=== PATIENT | female | born 1970 | race Caucasian/White ===

== ENCOUNTER 2016-10-26 14:10 | Inpatient (IN) | payer OTHER ==
[2016-10-25 15:19] VITALS: Ht 162.6 cm; Wt 110.0 kg
[2016-10-26] VITALS (25 sets, daily range): BP systolic 111–165; BP diastolic 51–92; PULSE 73–110; RESP 13–41
[~2016-10-26] VITALS: Ht 162.6 cm; Wt 110.0 kg
[~2016-10-26 14:10] MED LIST: ALBU18HF INHALATION; AMLO5TAB4 PO; CEFAZOLIN 1 GM INJ ONE; IBUP-1542 PO; OMEP40CA6 PO; OXYC-281 PO; PROPOFOL 200 MG INJ ONE; TRAM50TA2 PO
[2016-10-26] MEDS ORDERED: CEFAZOLIN 2 GM/50 ML (PMX) 50 ML IVPB ONE (15:00)
--- NOTE | 2016-10-26 16:09 | HPN ---
Date/Time of Note Date/Time of Note DATE: 10/26/16 TIME: 16:08 Interval H&P Admission Note Pt. seen H&P reviewed: No system changes ASHELY MORALEZ DPM Oct 26, 2016 16:09
[2016-10-26] MEDS ORDERED: LANS30CA PO (16:13)
[2016-10-26] MEDS ORDERED: CARV6.2579 PO (16:13)
[2016-10-26] MEDS ORDERED: MOME13HF2 INHALATION (16:13)
[2016-10-26] MEDS ORDERED: PREG50CA PO (16:13)
[2016-10-26] MEDS ORDERED: IBUP800T25 PO (16:13)
[2016-10-26] MEDS ORDERED: PROPOFOL 20 ML ONE (16:17)
[2016-10-26] MEDS ORDERED: LIDOCAINE 2% (SDV) 5 ML INJ ONE (16:17)
[2016-10-26] MEDS ORDERED: PROVENTIL HFA 6.7GM INHALER ONE (16:17)
[2016-10-26] MEDS ORDERED: MIDAZOLAM 1 MG/ML 2 ML INJ ONE ×2 (16:18→16:36)
[2016-10-26] MEDS ORDERED: HYDROmorphONE 2 MG/ML SYG ONE (16:32)
[2016-10-26] MEDS ORDERED: METOCLOPRAMIDE 10 MG INJ ONE (16:42)
[2016-10-26] MEDS ORDERED: ONDANSETRON 4 MG INJ ONE (16:42)
[2016-10-26] MEDS ORDERED: FAMOTIDINE 20 MG INJ ONE (16:42)
[2016-10-26] MEDS ORDERED: DIPHENHYDRAMINE 50 MG INJ IV PRN ×3 (17:00→23:00)
[2016-10-26] MEDS ORDERED: FENTAnyl 50 MCG/ML VIAL IV PRN (17:00)
[2016-10-26] MEDS ORDERED: HYDROmorphONE (0.2 MG/ML) 10ML SYG IV PRN ×3 (17:00)
[2016-10-26] MEDS ORDERED: ONDANSETRON 4 MG INJ IV PRN ×2 (17:00→18:00)
[2016-10-26] MEDS ORDERED: MEPERIDINE 25 MG INJ IV PRN (17:00)
[2016-10-26] MEDS ORDERED: KETOROLAC 30 MG INJ ONE (17:35)
[2016-10-26] MEDS ORDERED: DIPHENHYDRAMINE 50 MG INJ ONE (17:36)
[2016-10-26] MEDS ORDERED: BUPIVACAINE 0.5% (SDV) 30 ML INJ ONE (17:41)
[2016-10-26] MEDS ORDERED: LIDOCAINE 2% (MDV) 20 ML INJ ONE (17:42)
[2016-10-26] MEDS ORDERED: ALBUTEROL 0.083% (NEB) 2.5 MG/3 ML AMP ONE (17:44)
[2016-10-26] MEDS ORDERED: morphine 10 MG INJ ONE (17:56)
[2016-10-26] MEDS ORDERED: morphine (1 MG/ML) 10ML SYRINGE IV ONE (17:57)
[2016-10-26] MEDS ORDERED: hydrALAzine 20 MG INJ IV PRN (18:00)
[2016-10-26] MEDS ORDERED: morphine (1 MG/ML) 10ML SYRINGE IV PRN ×3 (18:00)
[2016-10-26] MEDS ORDERED: LABETALOL HCL 20MG INJ IV PRN (18:00)
[2016-10-26] MEDS ORDERED: ALBUTEROL 0.083% (NEB) 2.5 MG/3 ML AMP HHN ONE (18:00)
[2016-10-26] MEDS ORDERED: IPRATROPIUM (NEB) 0.5 MG/2.5 ML AMP HHN ONE (18:00)
[2016-10-26] MEDS ORDERED: NITROGLYCERIN (SL) 0.4 MG TAB ONE (18:07)
[2016-10-26] MEDS ORDERED: ALBUTEROL HFA 8 GM INHALER INH PRN (18:30)
[2016-10-26] MEDS ORDERED: KETOROLAC 30 MG INJ IV PRN (19:00)
[2016-10-26] MEDS ORDERED: POTASSIUM CHLORIDE 20 MEQ in LACTATED RINGER'S 1,000 ML IV SCH (19:00)
[2016-10-26] MEDS ORDERED: NITROGLYCERIN 2% 1 GM OINT PKT ONE (19:06)
[2016-10-26] MEDS: NITROGLYCERIN 2% 1 GM OINT PKT TD SCH (19:12)
[2016-10-26] MEDS: NITROGLYCERIN (SL) 0.4 MG TAB SL PRN (19:17)
[2016-10-26] MEDS: ASPIRIN (EC) 325 MG TAB PO SCH (19:31)
--- NOTE | 2016-10-26 20:06 | CONS ---
DATE OF ADMISSION: 10/26/2016 DATE OF CONSULTATION: 10/26/2016 REASON FOR CONSULTATION: Chest pain, assess for acute coronary syndrome. REQUESTING PHYSICIAN: Marcello Rowe MD HISTORY OF PRESENT ILLNESS: Ms. Jimenes is a 46-year-old female with a history of asthma, hyperten fili, gastroesophageal reflux disease, who had a toe fracture for which she underwent open reduction /internal fixation today. Post-procedure, the patient had complaints of shortness of breath, then t he onset of a substernal chest pain, described as pressure-like symptoms radiating through her chest . The patient, given these findings, underwent a troponin analysis which was negative. The patient has not yet had an electrocardiogram, but the EKG prior to the procedure revealed normal sinus rhyt hm, with a normal axis and mild T-wave flattening. The patient, at this time, has had some improvem ent with nitrates and sublingual nitroglycerins. PAST MEDICAL HISTORY: As above in HPI. The patient reported having a 2D echo prior to surgery, whi ch was normal. MEDICATIONS CURRENTLY IN HOSPITAL 1. Lyrica. 2. Protonix 40 mg daily. 4. Nitro paste 0.5 q.8. 5. Carvedilol 6.25 mg p.o. b.i.d. 6. Advair Diskus. 7. Albuterol. 8. Aspirin 325 mg daily. 9. Morphine p.r.n. 10. Albuterol p.r.n. 11. Hydralazine p.r.n. ALLERGIES 1. ACETAMINOPHEN. 2. CODEINE. 3. HYDROCODONE. 4. LATEX. 5. TRAMADOL. SOCIAL HISTORY: No tobacco, EtOH, illicit drug use. FAMILY HISTORY: No history of sudden cardiac or early CAD. REVIEW OF SYSTEMS As above in HPI: CONSTITUTIONAL: No fevers, chills. PULMONARY: No current shortness of breath. CARDIOVASCULAR: No current chest pain. GASTROINTESTINAL: No vomiting. GENITOURINARY: No hematuria. MUSCULOSKELETAL: Degenerative joint disease. PSYCHIATRIC: No documented psych history. NEUROLOGIC: No documented history of CVA. ENDOCRINE: No history of diabetes mellitus. PHYSICAL EXAMINATION VITAL SIGNS: Temperature of 98, blood pressure most recently 136/75, pulse 92, respiratory rate 29, sating 97% on 3 L. GENERAL: The patient is alert, awake, in no acute distress. NECK: JVP of approximately 8 cm water. CHEST: Fair movement throughout with mildly decreased breath sounds at the bases bilaterally. HEART: Regular rate and rhythm. S1, S2. I/ systolic murmur, nondisplaced PMI. ABDOMEN: Positive bowel sounds, soft. EXTREMITIES: No edema. Right lower extremity covered by a cast. LABORATORIES: Troponin negative x1. IMAGING STUDIES: No current imaging studies for my review at this time. ELECTROCARDIOGRAM: As above in HPI; no further new EKGs for my review at this time. IMPRESSION 1. Chest pain, assess for acute coronary syndrome. 2. Shortness of breath, rule out acute coronary syndrome. 3. History of hypertension. 4. Status post open reduction/internal fixation of a toe fracture today. 5. History of asthma. RECOMMENDATIONS 1. At this time, would admit patient to telemetry monitoring to follow rhythm and rate control clos oleksandr. 2. Continue the patient's current carvedilol to control heart rate and blood pressure and continue the patient's nitro paste at this time with p.r.n. sublingual nitroglycerin as necessary for recurre nt episodes of chest pain. 3. Complete a rule-out for myocardial infarction to ensure that the patient's chest pain is not due to an acute coronary syndrome or acute myocardial infarction. 4. Check a repeat 2D echo to assess ejection fraction, wall motion to rule out any major valve abno rmalities, and we will also initiate patient on a low-dose beta elizabeth and follow serial EKGs. Thank you for allowing me to take part in the care of this patient. I will continue to follow along very closely with you. Further recommendations will be made as the patient progresses through her inpatient hospital clinical course. Dictated By: GEMMA CABALLERO/YULIA Conf#: [id number] DID#: [id number] CC: MARCELLO ROWE MD;*End*
[2016-10-26] MEDS ORDERED: METOPROLOL 25 MG TAB PO SCH (21:00)
[2016-10-26] MEDS ORDERED: SALMETEROL/FLUTICASONE 250/50 INHA INH SCH (21:00)
--- NOTE | 2016-10-26 23:18 | HP ---
DATE OF ADMISSION: 10/26/2016 CHIEF COMPLAINT: Chest pain and right foot pain. HISTORY OF PRESENT ILLNESS: The patient is a 46-year-old female with history of hypertension, and a sthma who sustained left metatarsal fracture a few months ago. The patient reported that she twiste d her foot. The patient was seen by Dr. Moralez as an outpatient and was brought in to hospital [facility] and underwent ____ left fifth metatarsal. Detailed operative report is currently not available. The patient has history OF ALLERGY TO CODEINE and postoperatively was given IV Dilaudid. The patien t, in the recovery room, developed chest pressure. The patient was given nitroglycerin. The patien t reported resolution of her symptoms. The patient also appeared anxious. The patient was given br eathing treatment also due to history of asthma. The patient also received IV morphine postoperativ oleksandr; however, subsequently both Dilaudid and morphine have been discontinued due to HISTORY OF ALLER GY TO CODEINE AND HYDROCODONE. The patient did not have any skin rash. The patient does not appear to be short of breath, remains awake, alert. No reported diaphoresis. The patient did not complai n of any radiation of pain or tightness in the left upper extremity or angle of jaw. The patient re ported no prior history of known coronary artery disease. The patient in fact was seen by Dr. Teresa santos from cardiac standpoint preoperatively and had unremarkable echocardiogram with preserved LV func tion. The patient was cleared for surgery. REVIEW OF SYSTEMS: The patient denies any recent history of abdominal pain. No history of fever or chills. No history of nausea, vomiting, diarrhea. Rest of the review of systems unremarkable. PAST MEDICAL HISTORY: As stated above. ALLERGIES: TYLENOL WITH CODEINE, HYDROCODONE, LATEX, TRAMADOL. THE PATIENT WAS NOT SURE WHETHER HE R ALLERGIES WERE DUE TO TYLENOL ALONE, TYLENOL WITH CODEINE, OR HYDROCODONE ALONE, OR HYDROCODONE WI TH TYLENOL. SOCIAL HISTORY: No smoking, no alcohol. FAMILY HISTORY: The patient's mother had bypass surgery and one other sister probably has a pacemak er. Details are not available. PHYSICAL EXAMINATION: GENERAL: The patient is conscious, awake, alert. VITAL SIGNS: Temperature 98, pulse 74, respirations 20, blood pressure 137/58, O2 saturation 92% to 94% on 3 liters nasal cannula. HEENT: Atraumatic, normocephalic. Conjunctivae and lids normal. Oropharynx clear. NECK: Supple. No mass or thyromegaly. CHEST: Fairly clear. No use of accessory muscles. CARDIOVASCULAR: No murmur, gallop, or rub. ABDOMEN: Soft, nondistended, nontender. Bowel sounds present. EXTREMITIES: No leg edema. NEUROLOGIC: The patient is awake, alert, fairly oriented with no gross focal deficit, although exam was limited due to recent surgery. LABORATORY DATA: First troponin negative. EKG: Preop EKG was unremarkable. Echo unremarkable. IMPRESSION: 1. Atypical chest pain, rule out myocardial infarction. 2. Hypertension. 3. Asthma. 4. Left fifth metatarsal fracture, status post surgery. PLAN: The patient admitted on surgical floor. The patient will be given aspirin, nitrate, and Core g. We will hold off on Lovenox due to recent surgery. Will obtain serial cardiac enzymes and will obtain EKG also. Will obtain lipid panel. Cardiac consult from Dr. Oconnell has been requested. Fu rther recommendations depending on hospital course. Dictated By: MARCELLO ALMAGUER/NTS Conf#: [id number] DID#: [id number] CC: ASHELY MORALEZ DPM;*End*
[2016-10-27] VITALS (13 sets, daily range): BP systolic 108–151; BP diastolic 55–79; PULSE 65–104; RESP 16–20
[2016-10-27] MEDS ORDERED: PREGABALIN 25 MG CAP PO SCH
[2016-10-27] MEDS ORDERED: PREGABALIN 50 MG CAP PO ONE (00:30)
[2016-10-27] MEDS: morphine 2 MG INJ IV PRN ×6 (00:36→22:29)
[2016-10-27] MEDS: PREGABALIN 25 MG CAP PO SCH ×3 (00:37→20:25)
[2016-10-27] MEDS: LACTATED RINGER'S 1,000 ML IV SCH ×4 (00:41→20:37)
[2016-10-27] MEDS ORDERED: PANTOPRAZOLE (EC) 40 MG TAB PO SCH (06:00)
[2016-10-27] MEDS: PANTOPRAZOLE (EC) 40 MG TAB PO SCH (06:31)
[2016-10-27] MEDS: NITROGLYCERIN 2% 1 GM OINT PKT TD SCH (06:32)
[2016-10-27] MEDS: SALMETEROL/FLUTICASONE 250/50 INHA INH SCH (08:03)
[2016-10-27] MEDS: ASPIRIN (EC) 325 MG TAB PO SCH (08:04)
[2016-10-27] MEDS: ONDANSETRON 4 MG INJ IV PRN ×3 (08:04→22:41)
[2016-10-27 10:17] LABS: ADD SCAN DIFF NO
[2016-10-27 10:33] LABS: BASOPHIL # 0.1 10^3/ul (0.0-0.1); BASOPHILS % 0.5 % (0.0-2.0); EOSINOPHILS # 0.1 10^3/ul (0.0-0.5); EOSINOPHILS % 0.5 % (0.0-7.0); HEMATOCRIT 33.2 % (37.0-47.0); HEMOGLOBIN 10.8 g/dl (12.0-16.0); LYMPHOCYTES # 1.8 10^3/ul (0.8-2.9); MEAN CORPUSCULAR HEMOGLOBIN 28.7 pg (29.0-33.0); MEAN CORPUSCULAR HGB CONC 32.5 g/dl (32.0-37.0); MEAN CORPUSCULAR VOLUME 88.3 fl (82.0-101.0); MEAN PLATELET VOLUME 9.6 fl (7.4-10.4); MONOCYTE # 0.6 10^3/ul (0.3-0.9); MONOCYTES % 5.9 % (0.0-11.0); NEUTROPHIL # 7.6 10^3/ul (1.6-7.5); NEUTROPHILS % 74.9 % (39.0-77.0); PLATELET COUNT 318 10^3/UL (140-415); RED BLOOD COUNT 3.76 10^6/ul (4.20-5.40); RED CELL DISTRIBUTION WIDTH 14.6 % (11.5-14.5); WHITE BLOOD COUNT 10.1 10^3/ul (4.8-10.8)
[2016-10-27 10:37] LABS: ALBUMIN 3.1 g/dl (3.3-4.9)
[2016-10-27 10:38] LABS: POTASSIUM 3.7 mmol/L (3.5-5.1)
[2016-10-27 10:40] LABS: ALBUMIN/GLOBULIN RATIO 1.1; BILIRUBIN,INDIRECT 0.4 mg/dl (0-1.1); BILIRUBIN,TOTAL 0.4 mg/dl (0.2-1.3); CREATININE 0.6 mg/dl (0.44-1.00); TOTAL PROTEIN 5.9 g/dl (6.1-8.1)
[2016-10-27 10:41] LABS: CALCIUM 8.4 mg/dl (8.4-10.2); CHOL/HDL RATIO 2.5 RATIO
--- NOTE | 2016-10-27 13:56 | CONS ---
Date/Time of Note Date/Time of Note DATE: 10/27/16 TIME: 13:51 Assessment/Plan Assessment/Plan Chief Complaint/Hosp Course IMPRESSION 1. Chest pain, assess for acute coronary syndrome.-negative troponin x 3 but ongoing chest pain 2. Shortness of breath, rule out acute coronary syndrome-improved. 3. History of hypertension. 4. Status post open reduction/internal fixation of a toe fracture today. 5. History of asthma. Recc: -Tele -continue coreg/asa -Oral nitrates low dose and follow sx -Pain control for foot -For ongoing chest pain will consider stress test in AM Problems: Consultation Date/Type/Reason Admit Date/Time Oct 26, 2016 at 18:24 Initial Consult Date 10/26/2016 Type of Consultation: Cardiology Reason for Consultation Chest pain Referring Provider: MARCELLO CARTER MD Exam/Review of Systems Vital Signs Vitals Vital Signs Date Time Temp Pulse Resp B/P Pulse Ox O2 Delivery O2 Flow Rate FiO2 10/27/16 12:39 82 10/27/16 11:26 98.2 18 120/62 99 10/27/16 08:23 Nasal Cannula 2.0 Intake and Output 10/26/16 10/26/16 10/27/16 15:00 23:00 07:00 Intake Total 120 ml 1240 ml Output Total 5 ml Balance 115 ml 1240 ml Exam Review of Systems: CONSTITUTIONAL: No fevers, chills. PULMONARY: No sob CARDIOVASCULAR: intermittent chest pain GASTROINTESTINAL: No nausea/vomiting. GENITOURINARY: No hematuria/dysuria. MUSCULOSKELETAL: Pain in foot PSYCHIATRIC: The patient denies depression. NEUROLOGIC: No weakness Constitutional: alert, oriented Psych: no complaints Head: normocephalic ENMT: mucosa pink and moist Neck: jvd (9 cm water), supple Respiratory: diminished breath sounds (at bases/B) Cardiovascular: regular rate and rhythm Gastrointestinal: non-tender, soft Musculoskeletal: muscle tone Extremities: edema (none), other (R foot covered by cast/dressing) Neurological: other (No focal deficits) Results Result Diagram: 10/27/16 0940 10/27/16 0940 Results 24 hrs Laboratory Tests Test 10/26/16 18:35 10/27/16 00:25 10/27/16 09:40 Troponin I < 0.012 < 0.012 < 0.012 White Blood Count 10.1 Red Blood Count 3.76 L Hemoglobin 10.8 L Hematocrit 33.2 L Mean Corpuscular Volume 88.3 Mean Corpuscular Hemoglobin 28.7 L Mean Corpuscular Hemoglobin Concent 32.5 Red Cell Distribution Width 14.6 H Platelet Count 318 Mean Platelet Volume 9.6 Neutrophils % 74.9 Lymphocytes % 18.0 Monocytes % 5.9 Eosinophils % 0.5 Basophils % 0.5 Nucleated Red Blood Cells % 0.0 Neutrophils # 7.6 H Lymphocytes # 1.8 Monocytes # 0.6 Eosinophils # 0.1 Basophils # 0.1 Nucleated Red Blood Cells # 0.0 Sodium Level 138 Potassium Level 3.7 Chloride Level 103 Carbon Dioxide Level 24 Anion Gap 15 Blood Urea Nitrogen 7 Creatinine 0.60 Glucose Level 134 Calcium Level 8.4 Total Bilirubin 0.4 Direct Bilirubin 0.00 Indirect Bilirubin 0.4 Aspartate Amino Transf (AST/SGOT) 23 Alanine Aminotransferase (ALT/SGPT) 31 Alkaline Phosphatase 49 Total Protein 5.9 L Albumin 3.1 L Globulin 2.80 Albumin/Globulin Ratio 1.10 Triglycerides Level 93 Cholesterol Level 105 LDL Cholesterol, Calculated 45 HDL Cholesterol 41 Cholesterol/HDL Ratio 2.5 Medications Medications Current Medications Nitroglycerin (Nitroglycerin (Sl Tab) 0.4 Mg) 1 tab Q5M PRN SL ANGINA Last administered on 10/26/16 19:17; Admin Dose 0.4 TAB; Start 10/26/16 at 18:30 Albuterol (Ventolin Hfa) 2 puff Q4H PRN INH sob; Start 10/26/16 at 18:30 Carvedilol (Coreg) 6.25 mg BID PO Last administered on 10/27/16 08:04; Admin Dose 6.25 MG; Start 10/26/16 at 21:00 Aspirin (Ecotrin) 325 mg DAILY PO Last administered on 10/27/16 08:04; Admin Dose 325 MG; Start 10/26/16 at 18:30 Nitroglycerin (Nitroglycerin 2% Oint) 0.5 inch Q8 TD Last administered on 06:32; Admin Dose 0.5 INCH; Start 10/26/16 at 22:00 Diphenhydramine HCl (Benadryl) 25 mg Q6H PRN IV ITCHING; Start 10/26/16 at 23: 00 Ondansetron HCl 4 mg 4 mg Q6H PRN IV NAUSEA AND/OR VOMITING Last administered on 10/27/16 08:04; Admin Dose 4 MG; Start 10/26/16 at 23:30 Lactated Ringer's (Lr) 1,000 ml @ 70 mls/hr [id number] IV Last administered on 04:13; Admin Dose 70 MLS/HR; Start 10/26/16 at 23:30 Morphine Sulfate (morphine) 2 mg Q3H PRN IV PAIN LEVEL 6-10 Last administered on 10/27/16 11:35; Admin Dose 2 MG; Start 10/27/16 at 00:30 Pregabalin (Lyrica) 50 mg BID PO Last administered on 10/27/16 08:04; Admin Dose 50 MG; Start 10/27/16 at 00:30 Salmeterol Xinafoate/ Fluticasone (Advair 250/50 Diskus) 1 inh DAILY INH Last administered on 10/27/16 08:03; Admin Dose 1 INH; Start 10/27/16 at 09:00 Pantoprazole (Protonix Tab) 40 mg DAILY@06 PO Last administered on 10/27/16 06 :31; Admin Dose 40 MG; Start 10/27/16 at 06:00 GEMMA JOHNSON Oct 27, 2016 13:56
--- NOTE | 2016-10-27 13:59 | PN ---
Date/Time of Note Date/Time of Note DATE: 10/27/16 TIME: 13:57 Assessment/Plan VTE Prophylaxis VTE Prophylaxis Intervention: SCD's Lines/Catheters IV Catheter Type (from Nrsg): Peripheral IV Reason Cath still needed: urinary retention Assessment/Plan Assessment/Plan 1. Atypical chest pain, rule out myocardial infarction. - per Dr Oconnell in cardiology -Troponins negative 3. Lipid panel- WNL - aspirin, nitrate, and Coreg. 2. Hypertension.- stable 3. Asthma.- no acute issues. 4. Left fifth metatarsal fracture, status post surgery. -We will hold off on Lovenox due to recent surgery. 5. SCD for DVT prophylaxis Further recommendations based on patient's clinical course. Discussed with staff, patient Subjective 24 Hr Interval Summary Eyes: no complaints ENT: no complaints Respiratory: no complaints Cardiovascular: no complaints Genitourinary: no complaints Musculoskeletal: no complaints Skin: no complaints Exam/Review of Systems Vital Signs Vitals Vital Signs Date Time Temp Pulse Resp B/P Pulse Ox O2 Delivery O2 Flow Rate FiO2 10/27/16 12:39 82 10/27/16 11:26 98.2 18 120/62 99 10/27/16 08:23 Nasal Cannula 2.0 Intake and Output 10/26/16 10/26/16 10/27/16 15:00 23:00 07:00 Intake Total 120 ml 1240 ml Output Total 5 ml Balance 115 ml 1240 ml Exam Complain of chest pain on and off sitting in the bed denies any palpitations dizziness headache. Discussed with the staff Constitutional: alert, well developed Psych: nl mood/affect Eyes: EOMI, nl sclera ENMT: nl external ears & nose Neck: non-tender Respiratory: clear to auscultation Cardiovascular: other (Complain of chest pain off-and-on) Gastrointestinal: non-tender, soft Musculoskeletal: nl extremities to inspection Neurological: nl mental status, nl speech Lymph: nontender Results Result Diagram: 10/27/16 0940 10/27/16 0940 Results 24 hrs Laboratory Tests Test 10/26/16 18:35 10/27/16 00:25 10/27/16 09:40 Troponin I < 0.012 < 0.012 < 0.012 White Blood Count 10.1 Red Blood Count 3.76 L Hemoglobin 10.8 L Hematocrit 33.2 L Mean Corpuscular Volume 88.3 Mean Corpuscular Hemoglobin 28.7 L Mean Corpuscular Hemoglobin Concent 32.5 Red Cell Distribution Width 14.6 H Platelet Count 318 Mean Platelet Volume 9.6 Neutrophils % 74.9 Lymphocytes % 18.0 Monocytes % 5.9 Eosinophils % 0.5 Basophils % 0.5 Nucleated Red Blood Cells % 0.0 Neutrophils # 7.6 H Lymphocytes # 1.8 Monocytes # 0.6 Eosinophils # 0.1 Basophils # 0.1 Nucleated Red Blood Cells # 0.0 Sodium Level 138 Potassium Level 3.7 Chloride Level 103 Carbon Dioxide Level 24 Anion Gap 15 Blood Urea Nitrogen 7 Creatinine 0.60 Glucose Level 134 Calcium Level 8.4 Total Bilirubin 0.4 Direct Bilirubin 0.00 Indirect Bilirubin 0.4 Aspartate Amino Transf (AST/SGOT) 23 Alanine Aminotransferase (ALT/SGPT) 31 Alkaline Phosphatase 49 Total Protein 5.9 L Albumin 3.1 L Globulin 2.80 Albumin/Globulin Ratio 1.10 Triglycerides Level 93 Cholesterol Level 105 LDL Cholesterol, Calculated 45 HDL Cholesterol 41 Cholesterol/HDL Ratio 2.5 Medications Medications Current Medications Nitroglycerin (Nitroglycerin (Sl Tab) 0.4 Mg) 1 tab Q5M PRN SL ANGINA Last administered on 10/26/16 19:17; Admin Dose 0.4 TAB; Start 10/26/16 at 18:30 Albuterol (Ventolin Hfa) 2 puff Q4H PRN INH sob; Start 10/26/16 at 18:30 Carvedilol (Coreg) 6.25 mg BID PO Last administered on 10/27/16 08:04; Admin Dose 6.25 MG; Start 10/26/16 at 21:00 Aspirin (Ecotrin) 325 mg DAILY PO Last administered on 10/27/16 08:04; Admin Dose 325 MG; Start 10/26/16 at 18:30 Nitroglycerin (Nitroglycerin 2% Oint) 0.5 inch Q8 TD Last administered on 06:32; Admin Dose 0.5 INCH; Start 10/26/16 at 22:00 Diphenhydramine HCl (Benadryl) 25 mg Q6H PRN IV ITCHING; Start 10/26/16 at 23: 00 Ondansetron HCl 4 mg 4 mg Q6H PRN IV NAUSEA AND/OR VOMITING Last administered on 10/27/16 08:04; Admin Dose 4 MG; Start 10/26/16 at 23:30 Lactated Ringer's (Lr) 1,000 ml @ 70 mls/hr [id number] IV Last administered on 04:13; Admin Dose 70 MLS/HR; Start 10/26/16 at 23:30 Morphine Sulfate (morphine) 2 mg Q3H PRN IV PAIN LEVEL 6-10 Last administered on 10/27/16 11:35; Admin Dose 2 MG; Start 10/27/16 at 00:30 Pregabalin (Lyrica) 50 mg BID PO Last administered on 10/27/16 08:04; Admin Dose 50 MG; Start 10/27/16 at 00:30 Salmeterol Xinafoate/ Fluticasone (Advair 250/50 Diskus) 1 inh DAILY INH Last administered on 10/27/16 08:03; Admin Dose 1 INH; Start 10/27/16 at 09:00 Pantoprazole (Protonix Tab) 40 mg DAILY@06 PO Last administered on 10/27/16 06 :31; Admin Dose 40 MG; Start 10/27/16 at 06:00 ROBERTO CARLOS BIANCHI Oct 27, 2016 13:59 ROBERTO CARLOS BIANCHI Oct 27, 2016 13:59
--- NOTE | 2016-10-27 14:40 | RADRPT ---
PROCEDURE: Intraoperative imaging of the right foot with fluoroscopy. CLINICAL INDICATION: Right foot pain. Right fifth metatarsal fracture. Intraoperative. TECHNIQUE: 3 images of the right foot were obtained in the operating room with an image intensifie r. No radiologist was in attendance. 15.8 seconds of fluoroscopy time was used. COMPARISON: No prior study is available for comparison. FINDINGS: Images demonstrate open reduction and internal fixation of the fracture of the base of the fifth met atarsal with 2 cannulated screws. IMPRESSION: 1. Intraoperative imaging of the right foot. RPTAT: QQ .Donal Gonsales MD, Date Time Electronically viewed and signed by .Donal Gonsales MD, on 10/27/2016 14:39 .R/
--- NOTE | 2016-10-27 17:07 | RADRPT ---
Vent Rate: 71 bpm RR Interval: 0 msec PA Interval: 148 msec QRS Duration: 84 msec QT Interval: 414 msec QTC Interval: 449 msec P-R-T [place]: 32 - 53 - 44 degrees Normal sinus rhythm Normal ECG Electronically Signed By: Audi Ward [id number]
--- NOTE | 2016-10-27 17:24 | RADRPT ---
Vent Rate: 89 bpm RR Interval: 0 msec MI Interval: 142 msec QRS Duration: 84 msec QT Interval: 370 msec QTC Interval: 450 msec P-R-T [place]: 44 - 53 - 1 degrees Normal sinus rhythm Cannot rule out Anterior infarct , age undetermined Abnormal ECG Electronically Signed By: Audi Ward [id number]
[2016-10-27] MEDS: ISOSORBIDE DINITRATE 10 MG TAB PO SCH (20:26)
[2016-10-28] VITALS (10 sets, daily range): BP systolic 114–161; BP diastolic 53–91; PULSE 59–100; RESP 17–20
--- NOTE | 2016-10-28 00:11 | RADRPT ---
Echocardiogram Report Patient Name: VALERIE PAIZ Gender: Female Date: 1970 Study Date: 27-Oct-2016 Bridge Operator: Dionte Cavazos [facility] Location: [facility] Ref. Physician: GEMMA OCONNELL Quality: Technically Difficult Study Procedures: Transthoracic echocardiogram with complete 2D, M-Mode, and doppler examination. Indications: Chest Pain. 2D/M Mode Doppler Measurement Value Normal Ranges Measurement Value Normal Ranges LVIDd 2D 5.7 3.5 - 5.6 cm AV Peak Jose Martin 1.7 m/sec LVIDs 2D 3.1 2.1 - 4.1 cm AV Peak PG 12.2 mmHg LVPWd 2D 0.8 0.6 - 1.1 cm LVOT Peak Jose Martin 1.2 m/sec IVSd 2D 0.8 0.6 - 1.1 cm LVOT Peak PG 5.9 mmHg AoR Diam 2D 2.7 2.0 - 3.7 cm MV E Peak Jose Martin 0.8 m/sec EDV 2D 161.8 cm3 MV A Peak Jose Martin 0.8 m/sec ESV 2D 30.0 cm3 MV E/A 1.1 LA Dimen 2D 3.8 2.3 - 4.0 cm MV Decel Time 128 msec MV Decel [place] 7 MV E/A 1.1 TR Peak Jose Martin 2.1 m/sec TR Peak PG 18.4 mmHg RVSP 33.0 mmHg Findings Left Ventricle: Normal left ventricular systolic function. Normal left ventricular cavity size. Normal left ventricular wall thickness. Ejection fraction is visually estimated at 60 %. Tissue Doppler/Mitral Doppler indices are within normal limits. Right Ventricle: Normal right ventricular size. Normal right ventricular systolic function. Left Atrium: The left atrium is normal in size. Right Atrium: The right atrium is normal in size. Mitral Valve: Normal appearance and function of the mitral valve with trace physiologic regurgitation. Aortic Valve: Normal appearance of the aortic valve. No significant aortic stenosis or insufficiency. Tricuspid Valve: Normal appearance of the tricuspid valve. Estimated peak PA systolic pressure 33 mmHg. There is mild tricuspid regurgitation. Pulmonic Valve: Normal pulmonic valve appearance. Pericardium: Normal pericardium with no significant pericardial effusion. Aorta: Normal aortic root. IVC: Dilated IVC without respiratory collapse consistent with elevated right atrial pressure. Conclusions 1.Normal left ventricular systolic function. Normal left ventricular cavity size. Normal left ventricular wall thickness. Ejection fraction is visually estimated at 60 %. Tissue Doppler/Mitral Doppler indices are within normal limits. 2.Normal appearance and function of the mitral valve with trace physiologic regurgitation. 3.Normal appearance of the tricuspid valve. Estimated peak PA systolic pressure 33 mmHg. There is mild tricuspid regurgitation. Electronically Signed By: Gemma Oconnell 28-Oct-2016 00:10:49 -0700 Patient Name: VALERIE PAIZ Study Date: 27-Oct-2016 [id number]
[2016-10-28] MEDS: morphine 2 MG INJ IV PRN ×7 (02:39→22:11)
[2016-10-28] MEDS: PANTOPRAZOLE (EC) 40 MG TAB PO SCH (05:23)
[2016-10-28 06:46] LABS: ADD SCAN DIFF NO
[2016-10-28 06:54] LABS: BASOPHILS % 0.5 % (0.0-2.0); EOSINOPHILS # 0.3 10^3/ul (0.0-0.5); EOSINOPHILS % 3.6 % (0.0-7.0); HEMATOCRIT 34.6 % (37.0-47.0); HEMOGLOBIN 11.2 g/dl (12.0-16.0); LYMPHOCYTES # 2.2 10^3/ul (0.8-2.9); LYMPHOCYTES % 29.6 % (15.0-51.0); MEAN CORPUSCULAR HEMOGLOBIN 28.8 pg (29.0-33.0); MEAN CORPUSCULAR HGB CONC 32.4 g/dl (32.0-37.0); MEAN CORPUSCULAR VOLUME 88.9 fl (82.0-101.0); MEAN PLATELET VOLUME 9.8 fl (7.4-10.4); MONOCYTE # 0.7 10^3/ul (0.3-0.9); MONOCYTES % 8.9 % (0.0-11.0); NEUTROPHIL # 4.3 10^3/ul (1.6-7.5); NEUTROPHILS % 56.9 % (39.0-77.0); PLATELET COUNT 318 10^3/UL (140-415); RED BLOOD COUNT 3.89 10^6/ul (4.20-5.40); WHITE BLOOD COUNT 7.5 10^3/ul (4.8-10.8)
[2016-10-28 07:12] LABS: POTASSIUM 3.8 mmol/L (3.5-5.1)
[2016-10-28 07:15] LABS: CREATININE 0.64 mg/dl (0.44-1.00)
[2016-10-28 07:16] LABS: CALCIUM 8.3 mg/dl (8.4-10.2)
[2016-10-28] MEDS: ONDANSETRON 4 MG INJ IV PRN ×3 (07:56→19:30)
[2016-10-28] MEDS: ASPIRIN (EC) 325 MG TAB PO SCH (07:58)
[2016-10-28] MEDS: ISOSORBIDE DINITRATE 10 MG TAB PO SCH ×3 (07:59→20:42)
[2016-10-28] MEDS: SALMETEROL/FLUTICASONE 250/50 INHA INH SCH (08:00)
[2016-10-28] MEDS: PREGABALIN 25 MG CAP PO SCH ×2 (08:13→20:40)
[2016-10-28] MEDS ORDERED: REGADENOSON 0.4 MG/5 ML SYG ONE (10:46)
--- NOTE | 2016-10-28 11:38 | CONS ---
Date/Time of Note Date/Time of Note DATE: 10/28/16 TIME: 11:35 Assessment/Plan Assessment/Plan Chief Complaint/Hosp Course IMPRESSION 1. Chest pain, assess for acute coronary syndrome.-negative troponin x 3 but ongoing chest pain /NL EF by echo this admit 2. Shortness of breath, rule out acute coronary syndrome-improved.Likely was secondary to asthma 3. History of hypertension. 4. Status post open reduction/internal fixation of a toe fracture today. 5. History of asthma. Recc: -Tele -continue coreg/asa -Continue to oral nitrates and follow sx -Pain control for foot -Lexiscan stress test today and if negative then d/c planning Problems: Consultation Date/Type/Reason Admit Date/Time Oct 26, 2016 at 18:24 Initial Consult Date 10/26/2016 Type of Consultation: Cardiology Reason for Consultation Chest pain Referring Provider: MARCELLO CARTER MD Exam/Review of Systems Vital Signs Vitals Vital Signs Date Time Temp Pulse Resp B/P Pulse Ox O2 Delivery O2 Flow Rate FiO2 10/28/16 08:27 79 10/28/16 08:24 2.0 10/28/16 07:23 98.2 18 114/63 98 10/27/16 08:23 Nasal Cannula Intake and Output 10/27/16 10/27/16 10/28/16 15:00 23:00 07:00 Intake Total 800 ml 730 ml Balance 800 ml 730 ml Exam Review of Systems: CONSTITUTIONAL: No fevers, chills. PULMONARY: No sob CARDIOVASCULAR: No chest pain/palpitations GASTROINTESTINAL: No nausea/vomiting. GENITOURINARY: No hematuria/dysuria. MUSCULOSKELETAL: No myagias/arthalgias. PSYCHIATRIC: The patient denies depression. NEUROLOGIC: No weakness Constitutional: alert Psych: no complaints Head: normocephalic ENMT: mucosa pink and moist Neck: jvd (9 cm water), supple Respiratory: diminished breath sounds Cardiovascular: regular rate and rhythm Gastrointestinal: non-tender, soft Musculoskeletal: muscle tone (normal) Extremities: edema (none) Neurological: other (No focal deficits) Results Result Diagram: 10/28/16 0545 10/28/16 0545 Results 24 hrs Laboratory Tests Test 10/28/16 05:45 White Blood Count 7.5 # Red Blood Count 3.89 L Hemoglobin 11.2 L Hematocrit 34.6 L Mean Corpuscular Volume 88.9 Mean Corpuscular Hemoglobin 28.8 L Mean Corpuscular Hemoglobin Concent 32.4 Red Cell Distribution Width 15.0 H Platelet Count 318 Mean Platelet Volume 9.8 Neutrophils % 56.9 Lymphocytes % 29.6 Monocytes % 8.9 Eosinophils % 3.6 Basophils % 0.5 Nucleated Red Blood Cells % 0.0 Neutrophils # 4.3 Lymphocytes # 2.2 Monocytes # 0.7 Eosinophils # 0.3 Basophils # 0.0 Nucleated Red Blood Cells # 0.0 Sodium Level 140 Potassium Level 3.8 Chloride Level 103 Carbon Dioxide Level 26 Anion Gap 15 Blood Urea Nitrogen 6 L Creatinine 0.64 Glucose Level 90 # Calcium Level 8.3 L Troponin I < 0.012 Medications Medications Current Medications Nitroglycerin (Nitroglycerin (Sl Tab) 0.4 Mg) 1 tab Q5M PRN SL ANGINA Last administered on 10/26/16 19:17; Admin Dose 0.4 TAB; Start 10/26/16 at 18:30 Albuterol (Ventolin Hfa) 2 puff Q4H PRN INH sob; Start 10/26/16 at 18:30 Carvedilol (Coreg) 6.25 mg BID PO Last administered on 10/28/16 08:00; Admin Dose 6.25 MG; Start 10/26/16 at 21:00 Aspirin (Ecotrin) 325 mg DAILY PO Last administered on 10/28/16 07:58; Admin Dose 325 MG; Start 10/26/16 at 18:30 Diphenhydramine HCl (Benadryl) 25 mg Q6H PRN IV ITCHING; Start 10/26/16 at 23: 00 Ondansetron HCl 4 mg 4 mg Q6H PRN IV NAUSEA AND/OR VOMITING Last administered on 10/28/16 07:56; Admin Dose 4 MG; Start 10/26/16 at 23:30 Lactated Ringer's (Lr) 1,000 ml @ 70 mls/hr [id number] IV Last administered on 20:37; Admin Dose 70 MLS/HR; Start 10/26/16 at 23:30 Morphine Sulfate (morphine) 2 mg Q3H PRN IV PAIN LEVEL 6-10 Last administered on 10/28/16 10:48; Admin Dose 2 MG; Start 10/27/16 at 00:30 Pregabalin (Lyrica) 50 mg BID PO Last administered on 10/28/16 08:13; Admin Dose 50 MG; Start 10/27/16 at 00:30 Salmeterol Xinafoate/ Fluticasone (Advair 250/50 Diskus) 1 inh DAILY INH Last administered on 10/28/16 08:00; Admin Dose 1 INH; Start 10/27/16 at 09:00 Pantoprazole (Protonix Tab) 40 mg DAILY@06 PO Last administered on 10/28/16 05 :23; Admin Dose 40 MG; Start 10/27/16 at 06:00 Isosorbide Dinitrate (Isordil) 10 mg TID PO Last administered on 10/28/16 07: 59; Admin Dose 10 MG; Start 10/27/16 at 21:00 Ibuprofen (Motrin) 800 mg Q8H PRN NGT pain/headache; Start 10/28/16 at 11:30 GEMMA JOHNSON Oct 28, 2016 11:38
--- NOTE | 2016-10-28 12:41 | CARRPT ---
DATE OF PROCEDURE: 10/28/2016 LEXISCAN CARDIOLITE STRESS TEST, ELECTROCARDIOGRAM PORTION INDICATION: Chest pain, assess for ischemia. BASELINE VITAL SIGNS AND ELECTROCARDIOGRAM: Pulse 65, blood pressure is 113/65 Electrocardiogram r eveals normal sinus rhythm, rate of 65, normal axis, normal intervals with T-wave flattening isolate d to the aVL. PROCEDURE: After informed consent was obtained, the patient was brought the [facility] cardiology department where she was connected to continuous O2 saturation monitoring, blood pr essure cuff cycling every 3 minutes and continued telemetry monitoring. The patient received Lexisc an infusion over 10 seconds followed by radiotracer. The patient's test was stopped due to completi on of protocol. Maximal achieved blood pressure during the test 129/65. Maximal achieved heart rat e during the test 92. ECG FINDINGS: The patient did not develop any new Lexiscan-induced ST or T-wave changes from baseli ne abnormalities. No documented PVCs. SYMPTOMS: The patient had complaints of mild chest pain, shortness breath during stress testing whi ch resolved in recovery. IMPRESSION: 1. No Lexiscan-induced ST or T-wave changes from baseline abnormalities diagnostic of cardiac ische omid. 2. Complaints of chest pain and shortness breath during stress test which resolved in recovery. 3. No premature ventricular contractions during stress testing. 4. Report of nuclear images to follow in separate dictation. Dictated By: GEMMA CABALLERO/YULIA Conf#: [id number] DID#: [id number] CC: MARCELLO CARTER MD;*End*
[2016-10-28] MEDS: NITROGLYCERIN (SL) 0.4 MG TAB SL PRN (13:18)
--- NOTE | 2016-10-28 13:26 | RADRPT ---
PROCEDURE: Lexiscan myocardial perfusion study CLINICAL INDICATION: 46 -year-old patient complaining of chest pain. TECHNIQUE: Lexiscan 0.4 mg intravenously separate acquisition gated myocardial perfusion SPECT usi ng Tc 99m Myoview 33.1 mCi intravenously at stress and Tc-99m Myoview, 11.3 mCi intravenously at res t was performed using the rest/stress sequence. Poststress Myoview SPECT images were obtained in th e supine position. COMPARISON: No prior studies. FINDINGS: Perfusion images reveal no evidence of perfusion defects. Lexiscan post stress gated SPECT images demonstrate no wall motion abnormalities. IMPRESSION: 1. No evidence of perfusion defects. 2. No wall motion abnormalities. 3. The left ventricle ejection fraction at stress is 61%. A call report was made to Dr. Oconnell at 1:25 p.m. on October 28, 2016. RPTAT: HH .Anette Norris MD, Date Time Electronically viewed and signed by .Anette Norris MD, MD on 10/28/2016 13:26 .L/
[2016-10-28] MEDS: LACTATED RINGER'S 1,000 ML IV SCH (17:54)
--- NOTE | 2016-10-28 18:19 | PN ---
DATE: 10/28/2016 SUBJECTIVE: Follow up on right fifth metatarsal ORIF, recent chest pain with mild asthma attack. T he patient is complaining of numbness and weakness in the right leg. The patient denies any chest p ain. The patient has a history of chronic back pain, although she was not taking any medications. The patient is status post disk surgery at lower back, details not available. The patient denies an y chest pain or shortness of breath. PHYSICAL EXAMINATION: GENERAL: The patient is conscious, awake, alert. VITAL SIGNS: Temperature 97.6, pulse ____, respirations 20, blood pressure 136/90, O2 saturation 93 % on 2 liters nasal cannula. HEENT: No eye discharge or redness. Extraocular movement intact. Oropharynx clear. NECK: Supple, no mass. CHEST: Fairly clear. CARDIOVASCULAR: S1, S2 normal. No murmur. ABDOMEN: Soft, nondistended, nontender. Bowel sounds present. EXTREMITIES: No leg edema. Right foot has a dressing, DTRs present, both knee jerks and left ankl e. Right ankle jerks could not be done due to recent surgery. SUBJECTIVE/INTERVAL HISTORY: Patient reports numbness in the right lower extremity. Patient was ab le to ambulate with the help of walker. No bladder or bowel incontinence. LABORATORY DATA: Done today WBC 7.5, hemoglobin 11.2, platelets 318. Chemistry unremarkable, nucle ar stress test negative. Echo unremarkable. ASSESSMENT AND PLAN: 1. Atypical chest pain, myocardial infarction ruled out. Nuclear test was negative for ischemia. 2. Weakness and numbness of the right lower extremity with history of intermittent numbness in the left leg since the surgery. The patient was seen by ____ and order MRI of LS spine. PLAN: I spoke with the patient's neurosurgeon, ____, and according to him, the patient, had a microdiskectomy a few years ago at [facility]. Since then she has been complaining of nonspecifi c numbness and intermittent weakness in lower extremities and the patient has had multiple MRIs done in the past and according to him, there is no neurosurgical issue. Will wait for the MRI results a nd will request PT evaluation. Since patient's cardiac workup is negative, she will be transferred to med/surg. Dictated By: MARCELLO CARTER MD AB/NTS Conf#: [id number] DID#: [id number]
[2016-10-28] MEDS: IBUPROFEN 800 MG TAB NGT PRN (20:41)
[2016-10-29 00:09] VITALS: BP 104/54; RESP 18
[2016-10-29] MEDS: morphine 2 MG INJ IV PRN ×7 (04:12→23:14)
[2016-10-29] MEDS: PANTOPRAZOLE (EC) 40 MG TAB PO SCH (06:01)
[2016-10-29 07:34] VITALS: BP 129/65; RESP 18
[2016-10-29] MEDS: ASPIRIN (EC) 325 MG TAB PO SCH (08:35)
[2016-10-29] MEDS: SALMETEROL/FLUTICASONE 250/50 INHA INH SCH (08:35)
[2016-10-29] MEDS: ISOSORBIDE DINITRATE 10 MG TAB PO SCH ×3 (08:36→20:46)
[2016-10-29] MEDS: PREGABALIN 25 MG CAP PO SCH ×2 (08:38→20:45)
[2016-10-29] MEDS: IBUPROFEN 800 MG TAB NGT PRN ×2 (10:41→22:24)
[2016-10-29 11:34] VITALS: BP 136/68; RESP 20
--- NOTE | 2016-10-29 13:55 | CONS ---
Date/Time of Note Date/Time of Note DATE: 10/29/16 TIME: 13:53 Assessment/Plan Assessment/Plan Chief Complaint/Hosp Course IMPRESSION 1. Chest pain, assess for acute coronary syndrome.-negative troponin x 3 but ongoing chest pain/Lexiscan negative for ischemia /NL EF by echo this admit 2. Shortness of breath, rule out acute coronary syndrome-improved.Likely was secondary to asthma 3. History of hypertension. 4. Status post open reduction/internal fixation of a toe fracture today. 5. History of asthma. 6. LE weakness Recc: -Tele -continue coreg/asa -Continue to oral nitrates and follow sx as patient will comply -Pain control for foot -To have MRI today -PT eval Problems: Consultation Date/Type/Reason Admit Date/Time Oct 26, 2016 at 18:24 Initial Consult Date 10/26/2016 Type of Consultation: Cardiology Reason for Consultation chest pain Referring Provider: MARCELLO CARTER MD Exam/Review of Systems Vital Signs Vitals Vital Signs Date Time Temp Pulse Resp B/P Pulse Ox O2 Delivery O2 Flow Rate FiO2 10/29/16 11:34 97.9 69 20 136/68 96 10/28/16 08:24 2.0 10/27/16 08:23 Nasal Cannula Intake and Output 10/28/16 10/28/16 10/29/16 15:00 23:00 07:00 Intake Total 240 ml Output Total 2 ml Balance -2 ml 240 ml Exam Review of Systems: CONSTITUTIONAL: No fevers, chills. PULMONARY: No sob CARDIOVASCULAR: No chest pain/palpitations GASTROINTESTINAL: No nausea/vomiting. GENITOURINARY: No hematuria/dysuria. MUSCULOSKELETAL: No myagias/arthalgias. PSYCHIATRIC: The patient denies depression. NEUROLOGIC: No weakness Constitutional: alert Head: normocephalic ENMT: mucosa pink and moist Neck: jvd (8 cm water), supple Respiratory: clear to auscultation Cardiovascular: regular rate and rhythm Gastrointestinal: non-tender, soft Musculoskeletal: muscle tone (normal) Extremities: other (foot in cast) Neurological: other (c/o le weakness) Results Result Diagram: 10/28/16 0545 10/28/16 0545 Medications Medications Current Medications Nitroglycerin (Nitroglycerin (Sl Tab) 0.4 Mg) 1 tab Q5M PRN SL ANGINA Last administered on 10/28/16 13:18; Admin Dose 1 TAB; Start 10/26/16 at 18:30 Albuterol (Ventolin Hfa) 2 puff Q4H PRN INH sob; Start 10/26/16 at 18:30 Carvedilol (Coreg) 6.25 mg BID PO Last administered on 10/29/16 08:36; Admin Dose 6.25 MG; Start 10/26/16 at 21:00 Aspirin (Ecotrin) 325 mg DAILY PO Last administered on 10/29/16 08:35; Admin Dose 325 MG; Start 10/26/16 at 18:30 Diphenhydramine HCl (Benadryl) 25 mg Q6H PRN IV ITCHING; Start 10/26/16 at 23: 00 Ondansetron HCl (Zofran Inj) 4 mg Q6H PRN IV NAUSEA AND/OR VOMITING Last administered on 10/28/16 19:30; Admin Dose 4 MG; Start 10/26/16 at 23:30 Morphine Sulfate (morphine) 2 mg Q3H PRN IV PAIN LEVEL 6-10 Last administered on 10/29/16 12:31; Admin Dose 2 MG; Start 10/27/16 at 00:30 Pregabalin (Lyrica) 50 mg BID PO Last administered on 10/29/16 08:38; Admin Dose 50 MG; Start 10/27/16 at 00:30 Salmeterol Xinafoate/ Fluticasone (Advair 250/50 Diskus) 1 inh DAILY INH Last administered on 10/29/16 08:35; Admin Dose 1 INH; Start 10/27/16 at 09:00 Pantoprazole (Protonix Tab) 40 mg DAILY@06 PO Last administered on 10/29/16 06 :01; Admin Dose 40 MG; Start 10/27/16 at 06:00 Isosorbide Dinitrate (Isordil) 10 mg TID PO Last administered on 10/28/16 13: 12; Admin Dose 10 MG; Start 10/27/16 at 21:00 Ibuprofen (Motrin) 800 mg Q8H PRN NGT pain/headache Last administered on 10:41; Admin Dose 800 MG; Start 10/28/16 at 11:30 GEMMA JOHNSON Oct 29, 2016 13:55
--- NOTE | 2016-10-29 14:55 | RADRPT ---
PROCEDURE: MR Lumbar Spine without contrast. CLINICAL INDICATION: Back pain. Right foot numbness. TECHNIQUE: Multiplanar multisequence MRI of the lumbar spine was performed. COMPARISON: No similar studies are submitted for comparison. FINDINGS: There is a normal lumbar lordosis. The vertebral body heights are maintained. There is normal alignment. There is no destructive osseous lesion. There is no abnormal bone marrow edema. There is disk desiccation L5-S1 with mild disk space narrowing. The conus medullaris is at the L2 level. The cauda equina is unremarkable. T12-L1 : There is no disc herniation, spinal canal, or foraminal stenosis. L1-L2 : There is no disc herniation, spinal canal, or foraminal stenosis. L2-L3 : There is no disc herniation, spinal canal, or foraminal stenosis. L3-L4 : There is no disc herniation or spinal canal stenosis. There is mild bilateral facet arthrop athy without bilateral foraminal stenosis. L4-L5 : There is no disc herniation or spinal canal stenosis. There is moderate bilateral facet art hropathy and ligamentum flavum infolding without bilateral foraminal stenosis. L5-S1 : There is a 1 mm central disk protrusion with moderate bilateral facet arthropathy without sp inal canal stenosis. There is no bilateral foraminal stenosis. The paraspinal musculature are within normal limits. IMPRESSION: 1. No acute compression fracture or abnormal bone marrow edema. 2. L5-S1 minimal central disk protrusion without spinal canal or bilateral foraminal stenosis. Further findings as detailed above. RPTAT: PP .Sumit Wilkerson MD, Date Time Electronically viewed and signed by .Sumit Wilkerson MD, on 10/29/2016 14:55 .F/
[2016-10-29 15:34] VITALS: BP 136/73; RESP 18
[2016-10-29 19:06] VITALS: BP 135/77; RESP 16
--- NOTE | 2016-10-29 21:00 | PN ---
Date/Time of Note Date/Time of Note DATE: 10/28/16 TIME: 20:42 Assessment/Plan Lines/Catheters IV Catheter Type (from Nrsg): Saline Lock [place] in Place (from Nrsg): No Assessment/Plan Problems: (1) Postop check (2) Nondisp fracture of fifth right metatarsal bone with routine healing (3) Morbid obesity (4) Chronic lower back pain Assessment/Plan An MRI of the lower back was ordered. Discussed with Dr. Rowe. Continue non weight bearing. Will review MRI when available. Neurology consult recommended. Subjective 24 Hr Interval Summary Patient is s/p right foot ORIF of the fifth metatarsal base non union. Patient claims that she is "unable to move my legs and I have numbness in my toes on the right toes." She points to the big toe, second toe and third toes. Patient states she is unable to move her legs. Patient reports extensive history of lower back pain in the past. She complains of pain in her right foot. Nursing reported that patient was able to get up from her bed to goto the bathroom. Exam/Review of Systems Vital Signs Vitals Vital Signs Date Time Temp Pulse Resp B/P Pulse Ox O2 Delivery O2 Flow Rate FiO2 10/29/16 15:34 97.7 68 18 136/73 97 10/28/16 08:24 2.0 10/27/16 08:23 Nasal Cannula Intake and Output 10/28/16 10/28/16 10/29/16 15:00 23:00 07:00 Intake Total 240 ml Output Total 2 ml Balance -2 ml 240 ml Exam Free Text/Dictation Patient is morbidly obese in no acute distress. Examination of lower legs show no skin lesions, no ecchymosis, no erythema. Bandages were removed from the right foot. Skin incision on lateral right fifth metatarsal base is well coapted with no sign of infection. Sutures are intact. There is minimal edema of the right foot noted. Palpable pedal pulses noted. Patient has full sensation to sharp, dull, vibratory and temperature stimuli bilaterally. Xrays were reviewed. Results Result Diagram: 10/28/16 0545 10/28/16 0545 ASHELY MORALEZ DPM Oct 29, 2016 20:53
--- NOTE | 2016-10-29 22:37 | RADRPT ---
PROCEDURE: XR Right Foot. CLINICAL INDICATION: Right foot pain. Postop. TECHNIQUE: Three views. Frontal, lateral, and oblique. COMPARISON: Intraoperative imaging dated 10/26/2016. FINDINGS: There are 2 cannulated screws transfixing the fracture of the base of the fifth metatarsal. The soft tissues are normal. The articular surfaces are otherwise intact. There are degenerative changes of the first metatarsal phalangeal joint with osteophytes noted. There is a plantar calcaneal spur. There is no lytic or blastic lesion. IMPRESSION: 1. Open reduction and internal fixation of the base of the fifth metatarsal. 2. Degenerative changes of the first metatarsal phalangeal joint. 3. Plantar calcaneal spur. RPTAT: QQ .Donal Gonsales MD, Date Time Electronically viewed and signed by .Donal Gonsales MD, on 10/29/2016 22:37 .R/
[2016-10-30] VITALS (7 sets, daily range): BP systolic 104–133; BP diastolic 58–71; RESP 16–18
[2016-10-30] MEDS: morphine 2 MG INJ IV PRN ×9 (02:36→23:10)
[2016-10-30] MEDS: PANTOPRAZOLE (EC) 40 MG TAB PO SCH (06:23)
[2016-10-30] MEDS: SALMETEROL/FLUTICASONE 250/50 INHA INH SCH (08:28)
[2016-10-30] MEDS: ASPIRIN (EC) 325 MG TAB PO SCH (08:29)
[2016-10-30] MEDS: PREGABALIN 25 MG CAP PO SCH ×2 (08:29→21:02)
[2016-10-30] MEDS: ISOSORBIDE DINITRATE 10 MG TAB PO SCH ×3 (08:30→21:00)
--- NOTE | 2016-10-30 11:30 | PN ---
Date/Time of Note Date/Time of Note DATE: 10/30/16 TIME: 11:28 Assessment/Plan VTE Prophylaxis VTE Prophylaxis Intervention: other Lines/Catheters IV Catheter Type (from Nrs): Saline Lock Urinary Cath still in place: No Assessment/Plan Assessment/Plan 1) right foot pain - workup per neurosurgery 2) chest pain - noncardiac per cardiac workup Subjective 24 Hr Interval Summary Free Text/Dictation Patient continues to have pain in right foot Exam/Review of Systems Vital Signs Vitals Vital Signs Date Time Temp Pulse Resp B/P Pulse Ox O2 Delivery O2 Flow Rate FiO2 10/30/16 07:34 98.1 64 18 133/71 95 10/28/16 08:24 2.0 10/27/16 08:23 Nasal Cannula Intake and Output 10/29/16 10/29/16 10/30/16 15:00 23:00 07:00 Intake Total 600 ml 500 ml Balance 600 ml 500 ml Exam Constitutional: well developed Head: atraumatic, normocephalic Neck: supple Cardiovascular: regular rate and rhythm Gastrointestinal: non-tender, soft Extremities: normal pulses Results Result Diagram: 10/28/16 0545 10/28/16 0545 Medications Medications Current Medications Nitroglycerin (Nitroglycerin (Sl Tab) 0.4 Mg) 1 tab Q5M PRN SL ANGINA Last administered on 10/28/16 13:18; Admin Dose 1 TAB; Start 10/26/16 at 18:30 Albuterol (Ventolin Hfa) 2 puff Q4H PRN INH sob; Start 10/26/16 at 18:30 Carvedilol (Coreg) 6.25 mg BID PO Last administered on 10/30/16 08:29; Admin Dose 6.25 MG; Start 10/26/16 at 21:00 Aspirin (Ecotrin) 325 mg DAILY PO Last administered on 10/30/16 08:29; Admin Dose 325 MG; Start 10/26/16 at 18:30 Diphenhydramine HCl (Benadryl) 25 mg Q6H PRN IV ITCHING; Start 10/26/16 at 23: 00 Ondansetron HCl (Zofran Inj) 4 mg Q6H PRN IV NAUSEA AND/OR VOMITING Last administered on 10/28/16 19:30; Admin Dose 4 MG; Start 10/26/16 at 23:30 Pregabalin (Lyrica) 50 mg BID PO Last administered on 10/30/16 08:29; Admin Dose 50 MG; Start 10/27/16 at 00:30 Salmeterol Xinafoate/ Fluticasone (Advair 250/50 Diskus) 1 inh DAILY INH Last administered on 10/30/16 08:28; Admin Dose 1 INH; Start 10/27/16 at 09:00 Pantoprazole (Protonix Tab) 40 mg DAILY@06 PO Last administered on 10/30/16 06 :23; Admin Dose 40 MG; Start 10/27/16 at 06:00 Isosorbide Dinitrate (Isordil) 10 mg TID PO Last administered on 10/28/16 13: 12; Admin Dose 10 MG; Start 10/27/16 at 21:00 Ibuprofen (Motrin) 800 mg Q8H PRN NGT pain/headache Last administered on 22:24; Admin Dose 800 MG; Start 10/28/16 at 11:30 Morphine Sulfate (morphine) 2 mg Q2H PRN IV PAIN Last administered on 08:29; Admin Dose 2 MG; Start 10/29/16 at 19:00 SOFÍA BOOKER Oct 30, 2016 11:30
--- NOTE | 2016-10-30 12:36 | CONS ---
Date/Time of Note Date/Time of Note DATE: 10/30/16 TIME: 12:34 Assessment/Plan Assessment/Plan Chief Complaint/Hosp Course IMPRESSION 1. Chest pain, assess for acute coronary syndrome.-negative troponin x 3 but ongoing chest pain/Lexiscan negative for ischemia /NL EF by echo this admit 2. Shortness of breath, rule out acute coronary syndrome-improved.Likely was secondary to asthma 3. History of hypertension. 4. Status post open reduction/internal fixation of a toe fracture today. 5. History of asthma. 6. LE [id number] disc protrusion Recc: -Tele -continue coreg/asa -Continue to oral nitrates and follow sx as patient will comply -Pain control for foot -PT eval Problems: Consultation Date/Type/Reason Admit Date/Time Oct 26, 2016 at 18:24 Initial Consult Date 10/26/2016 Type of Consultation: Cardiology Reason for Consultation Chest pain Referring Provider: MARCELLO CARTER MD Exam/Review of Systems Vital Signs Vitals Vital Signs Date Time Temp Pulse Resp B/P Pulse Ox O2 Delivery O2 Flow Rate FiO2 10/30/16 11:43 97.6 63 18 112/60 98 10/28/16 08:24 2.0 10/27/16 08:23 Nasal Cannula Intake and Output 10/29/16 10/29/16 10/30/16 15:00 23:00 07:00 Intake Total 600 ml 500 ml Balance 600 ml 500 ml Exam Review of Systems: CONSTITUTIONAL: No fevers, chills. PULMONARY: No sob CARDIOVASCULAR: No chest pain/palpitations GASTROINTESTINAL: No nausea/vomiting. GENITOURINARY: No hematuria/dysuria. MUSCULOSKELETAL: No myagias/arthalgias. PSYCHIATRIC: The patient denies depression. NEUROLOGIC: No weakness Constitutional: alert, oriented Psych: no complaints Head: normocephalic ENMT: mucosa pink and moist Neck: jvd (8 cm water), supple Respiratory: clear to auscultation Cardiovascular: regular rate and rhythm Gastrointestinal: non-tender, soft Extremities: edema (none) Neurological: other (No focal deficits) Results Result Diagram: 10/28/16 0545 10/28/16 0545 Medications Medications Current Medications Nitroglycerin (Nitroglycerin (Sl Tab) 0.4 Mg) 1 tab Q5M PRN SL ANGINA Last administered on 10/28/16 13:18; Admin Dose 1 TAB; Start 10/26/16 at 18:30 Albuterol (Ventolin Hfa) 2 puff Q4H PRN INH sob; Start 10/26/16 at 18:30 Carvedilol (Coreg) 6.25 mg BID PO Last administered on 10/30/16 08:29; Admin Dose 6.25 MG; Start 10/26/16 at 21:00 Aspirin (Ecotrin) 325 mg DAILY PO Last administered on 10/30/16 08:29; Admin Dose 325 MG; Start 10/26/16 at 18:30 Diphenhydramine HCl (Benadryl) 25 mg Q6H PRN IV ITCHING; Start 10/26/16 at 23: 00 Ondansetron HCl (Zofran Inj) 4 mg Q6H PRN IV NAUSEA AND/OR VOMITING Last administered on 10/28/16 19:30; Admin Dose 4 MG; Start 10/26/16 at 23:30 Pregabalin (Lyrica) 50 mg BID PO Last administered on 10/30/16 08:29; Admin Dose 50 MG; Start 10/27/16 at 00:30 Salmeterol Xinafoate/ Fluticasone (Advair 250/50 Diskus) 1 inh DAILY INH Last administered on 10/30/16 08:28; Admin Dose 1 INH; Start 10/27/16 at 09:00 Pantoprazole (Protonix Tab) 40 mg DAILY@06 PO Last administered on 10/30/16 06 :23; Admin Dose 40 MG; Start 10/27/16 at 06:00 Isosorbide Dinitrate (Isordil) 10 mg TID PO Last administered on 10/28/16 13: 12; Admin Dose 10 MG; Start 10/27/16 at 21:00 Ibuprofen (Motrin) 800 mg Q8H PRN NGT pain/headache Last administered on 22:24; Admin Dose 800 MG; Start 10/28/16 at 11:30 Morphine Sulfate (morphine) 2 mg Q2H PRN IV PAIN Last administered on 11:49; Admin Dose 2 MG; Start 10/29/16 at 19:00 GEMMA JOHNSON Oct 30, 2016 12:36
[2016-10-30] MEDS: ONDANSETRON 4 MG INJ IV PRN ×2 (13:41→19:41)
[2016-10-30] MEDS: IBUPROFEN 800 MG TAB NGT PRN (21:03)
[2016-10-31 03:37] VITALS: BP 112/55; RESP 16
[2016-10-31] MEDS: morphine 2 MG INJ IV PRN ×8 (06:03→22:01)
[2016-10-31] MEDS: PANTOPRAZOLE (EC) 40 MG TAB PO SCH (06:04)
[2016-10-31 07:28] VITALS: BP 101/48; RESP 18
[2016-10-31] MEDS: ISOSORBIDE DINITRATE 10 MG TAB PO SCH ×3 (09:00→20:53)
[2016-10-31] MEDS: ASPIRIN (EC) 325 MG TAB PO SCH (09:23)
[2016-10-31] MEDS: PREGABALIN 25 MG CAP PO SCH ×2 (09:27→20:54)
[2016-10-31] MEDS: SALMETEROL/FLUTICASONE 250/50 INHA INH SCH (10:08)
[2016-10-31 11:52] VITALS: BP 109/54; RESP 17
[2016-10-31 15:38] VITALS: BP 136/62; RESP 18
[2016-10-31] MEDS: ONDANSETRON 4 MG INJ IV PRN (17:32)
--- NOTE | 2016-10-31 17:51 | CONS ---
Date/Time of Note Date/Time of Note DATE: 10/31/16 TIME: 17:48 Assessment/Plan Assessment/Plan Chief Complaint/Hosp Course IMPRESSION 1. Chest pain, assess for acute coronary syndrome.-negative troponin x 3 but ongoing chest pain/Lexiscan negative for ischemia /NL EF by echo this admit 2. Shortness of breath, rule out acute coronary syndrome-improved.Likely was secondary to asthma 3. History of hypertension. 4. Status post open reduction/internal fixation of a toe fracture today. 5. History of asthma. 6. LE [id number] disc protrusion Recc: -Tele -continue coreg/asa -Continue to oral nitrates and follow sx as patient will comply -Pain control for foot -PT eval -Ongoing podiatric eval Problems: Consultation Date/Type/Reason Admit Date/Time Oct 26, 2016 at 18:24 Initial Consult Date 10/26/2016 Type of Consultation: Cardiology Reason for Consultation chest pain Referring Provider: MARCELLO CARTER MD Exam/Review of Systems Vital Signs Vitals Vital Signs Date Time Temp Pulse Resp B/P Pulse Ox O2 Delivery O2 Flow Rate FiO2 10/31/16 15:38 98.6 70 18 136/62 98 10/31/16 10:57 Nasal Cannula 2.0 Intake and Output 10/30/16 10/30/16 10/31/16 15:00 23:00 07:00 Intake Total 750 ml 400 ml Balance 750 ml 400 ml Exam Review of Systems: CONSTITUTIONAL: No fevers, chills. PULMONARY: No sob CARDIOVASCULAR: No chest pain/palpitations GASTROINTESTINAL: No nausea/vomiting. GENITOURINARY: No hematuria/dysuria. MUSCULOSKELETAL: No myagias/arthalgias. PSYCHIATRIC: The patient denies depression. NEUROLOGIC: No weakness Constitutional: alert Psych: no complaints Head: normocephalic ENMT: mucosa pink and moist Neck: jvd (8 cm water), supple Respiratory: clear to auscultation Cardiovascular: regular rate and rhythm Gastrointestinal: non-tender, soft Extremities: other (foot in cast) Neurological: other (No focal deficits) Results Result Diagram: 10/28/16 0545 10/28/16 0545 Medications Medications Current Medications Nitroglycerin (Nitroglycerin (Sl Tab) 0.4 Mg) 1 tab Q5M PRN SL ANGINA Last administered on 10/28/16 13:18; Admin Dose 1 TAB; Start 10/26/16 at 18:30 Albuterol (Ventolin Hfa) 2 puff Q4H PRN INH sob; Start 10/26/16 at 18:30 Carvedilol (Coreg) 6.25 mg BID PO Last administered on 10/30/16 21:02; Admin Dose 6.25 MG; Start 10/26/16 at 21:00 Aspirin (Ecotrin) 325 mg DAILY PO Last administered on 10/31/16 09:23; Admin Dose 325 MG; Start 10/26/16 at 18:30 Diphenhydramine HCl (Benadryl) 25 mg Q6H PRN IV ITCHING; Start 10/26/16 at 23: 00 Ondansetron HCl (Zofran Inj) 4 mg Q6H PRN IV NAUSEA AND/OR VOMITING Last administered on 10/31/16 17:32; Admin Dose 4 MG; Start 10/26/16 at 23:30 Pregabalin (Lyrica) 50 mg BID PO Last administered on 10/31/16 09:27; Admin Dose 50 MG; Start 10/27/16 at 00:30 Salmeterol Xinafoate/ Fluticasone (Advair 250/50 Diskus) 1 inh DAILY INH Last administered on 10/31/16 10:08; Admin Dose 1 INH; Start 10/27/16 at 09:00 Pantoprazole (Protonix Tab) 40 mg DAILY@06 PO Last administered on 10/31/16 06: 04; Admin Dose 40 MG; Start 10/27/16 at 06:00 Isosorbide Dinitrate (Isordil) 10 mg TID PO Last administered on 10/28/16 13: 12; Admin Dose 10 MG; Start 10/27/16 at 21:00 Ibuprofen (Motrin) 800 mg Q8H PRN NGT pain/headache Last administered on 21:03; Admin Dose 800 MG; Start 10/28/16 at 11:30 Morphine Sulfate (morphine) 2 mg Q2H PRN IV PAIN Last administered on 10/31/16 17:32; Admin Dose 2 MG; Start 10/29/16 at 19:00 GEMMA JOHNSON October 31, 2016 17:51
--- NOTE | 2016-10-31 18:19 | PN ---
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 Madsen on 10/26. Continue PT. - Weakness and numbness of the right lower extremity with history of intermittent numbness in the left leg since the surgery. - L5-S1 minimal central disk protrusion without spinal canal or bilateral foraminal stenosis. - Atypical chest pain, myocardial infarction ruled out. Nuclear test was negative for ischemia. Dr. Oconnell is following in cardiology consultation. Further recommendations based on clinical course. Plan of care discussed with Dr. Rowe. Problems: Subjective 24 Hr Interval Summary Free Text/Dictation Patient's complains of the right foot and numbness and pain that radiates to the right knee, patient denies any chest pain denies shortness of breath. Exam/Review of Systems Vital Signs Vitals Vital Signs Date Time Temp Pulse Resp B/P Pulse Ox O2 Delivery O2 Flow Rate FiO2 10/31/16 15:38 98.6 70 18 136/62 98 10/31/16 10:57 Nasal Cannula 2.0 Intake and Output 10/30/16 10/30/16 10/31/16 15:00 23:00 07:00 Intake Total 750 ml 400 ml Balance 750 ml 400 ml Exam Constitutional: alert, oriented Psych: no complaints Head: atraumatic, normocephalic Eyes: nl conjunctiva ENMT: nl external ears & nose Neck: non-tender, supple Respiratory: clear to auscultation, normal air movement Cardiovascular: nl pulses, regular rate and rhythm Gastrointestinal: soft Musculoskeletal: nl extremities to inspection Extremities: normal pulses, other (Right foot status post surgery) 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 Results Result Diagram: 10/28/16 0545 10/28/16 0545 Medications Medications Current Medications Nitroglycerin (Nitroglycerin (Sl Tab) 0.4 Mg) 1 tab Q5M PRN SL ANGINA Last administered on 10/28/16t 13:18; Admin Dose 1 TAB; Start 10/26/16 at 18:30 Albuterol (Ventolin Hfa) 2 puff Q4H PRN INH sob; Start 10/26/16 at 18:30 Carvedilol (Coreg) 6.25 mg BID PO Last administered on 10/30/16 21:02; Admin Dose 6.25 MG; Start 10/26/16 at 21:00 Aspirin (Ecotrin) 325 mg DAILY PO Last administered on 10/31/16 09:23; Admin Dose 325 MG; Start 10/26/16 at 18:30 Diphenhydramine HCl (Benadryl) 25 mg Q6H PRN IV ITCHING; Start 10/26/16 at 23: 00 Ondansetron HCl (Zofran Inj) 4 mg Q6H PRN IV NAUSEA AND/OR VOMITING Last administered on 10/31/16 17:32; Admin Dose 4 MG; Start 10/26/16 at 23:30 Pregabalin (Lyrica) 50 mg BID PO Last administered on 10/31/16 09:27; Admin Dose 50 MG; Start 10/27/16 at 00:30 Salmeterol Xinafoate/ Fluticasone (Advair 250/50 Diskus) 1 inh DAILY INH Last administered on 10/31/16 10:08; Admin Dose 1 INH; Start 10/27/16 at 09:00 Pantoprazole (Protonix Tab) 40 mg DAILY@06 PO Last administered on 10/31/16 06: 04; Admin Dose 40 MG; Start 10/27/16 at 06:00 Isosorbide Dinitrate (Isordil) 10 mg TID PO Last administered on 10/28/16 13: 12; Admin Dose 10 MG; Start 10/27/16 at 21:00 Ibuprofen (Motrin) 800 mg Q8H PRN NGT pain/headache Last administered on 21:03; Admin Dose 800 MG; Start 10/28/16 at 11:30 Morphine Sulfate (morphine) 2 mg Q2H PRN IV PAIN Last administered on 10/31/16 17:32; Admin Dose 2 MG; Start 10/29/16 at 19:00 EVENS MEZA October 31, 2016 18:19
[2016-10-31 18:53] VITALS: BP 134/65; RESP 20
[2016-10-31 20:40] VITALS: BP 125/62; RESP 20
--- NOTE | 2016-10-31 23:29 | PN ---
Date/Time of Note Date/Time of Note DATE: 10/31/16 TIME: 23:28 Assessment/Plan Lines/Catheters IV Catheter Type (from Nrsg): Saline Lock [place] in Place (from Nrsg): No Assessment/Plan Problems: (1) Morbid obesity (2) Postop check (3) Chronic lower back pain (4) Nondisp fracture of fifth right metatarsal bone with routine healing Assessment/Plan I encouraged patient to ambulate using a walker. Physical therapy to continue ambulation training. Patient's echo results are all normal. Patient's MRI of the lower back is also indicative of a small L5-S1 degeneration but no significant stenosis or bulging disc. Patient's surgical site is improved significantly and there is minimum edema. There is no sign of infection present. Patient may do partial weightbearing with a postop shoe and PT training. Pain management is highly recommended for this patient. Exam/Review of Systems Vital Signs Vitals Vital Signs Date Time Temp Pulse Resp B/P Pulse Ox O2 Delivery O2 Flow Rate FiO2 10/31/16 20:40 98.4 69 20 125/62 96 10/31/16 20:00 Nasal Cannula 2.0 Intake and Output 10/30/16 10/30/16 10/31/16 15:00 23:00 07:00 Intake Total 750 ml 400 ml Balance 750 ml 400 ml Results Result Diagram: 10/28/16 0545 10/28/16 0545 ASHELY MORALEZ DPM October 31, 2016 23:29
[2016-11-01] MEDS: morphine 2 MG INJ IV PRN ×8 (00:23→22:17)
[2016-11-01 05:56] LABS: ADD SCAN DIFF NO
[2016-11-01] MEDS: PANTOPRAZOLE (EC) 40 MG TAB PO SCH (06:05)
[2016-11-01 06:08] LABS: BASOPHILS % 0.5 % (0.0-2.0); EOSINOPHILS # 0.3 10^3/ul (0.0-0.5); EOSINOPHILS % 4.2 % (0.0-7.0); HEMATOCRIT 37.5 % (37.0-47.0); HEMOGLOBIN 12.2 g/dl (12.0-16.0); LYMPHOCYTES # 2.2 10^3/ul (0.8-2.9); LYMPHOCYTES % 28.2 % (15.0-51.0); MEAN CORPUSCULAR HEMOGLOBIN 28.4 pg (29.0-33.0); MEAN CORPUSCULAR HGB CONC 32.5 g/dl (32.0-37.0); MEAN CORPUSCULAR VOLUME 87.4 fl (82.0-101.0); MEAN PLATELET VOLUME 9.5 fl (7.4-10.4); MONOCYTE # 0.6 10^3/ul (0.3-0.9); MONOCYTES % 8.2 % (0.0-11.0); NEUTROPHIL # 4.6 10^3/ul (1.6-7.5); NEUTROPHILS % 58.5 % (39.0-77.0); PLATELET COUNT 364 10^3/UL (140-415); RED BLOOD COUNT 4.29 10^6/ul (4.20-5.40); RED CELL DISTRIBUTION WIDTH 14.6 % (11.5-14.5); WHITE BLOOD COUNT 7.8 10^3/ul (4.8-10.8)
[2016-11-01 06:24] LABS: CALCIUM 8.6 mg/dl (8.4-10.2); CREATININE 0.75 mg/dl (0.44-1.00); POTASSIUM 3.9 mmol/L (3.5-5.1)
[2016-11-01 07:57] VITALS: BP 106/57; RESP 20
[2016-11-01] MEDS: ISOSORBIDE DINITRATE 10 MG TAB PO SCH ×4 (08:44→20:40)
[2016-11-01] MEDS: PREGABALIN 25 MG CAP PO SCH ×2 (08:44→20:38)
[2016-11-01] MEDS: ASPIRIN (EC) 325 MG TAB PO SCH (08:44)
[2016-11-01] MEDS: SALMETEROL/FLUTICASONE 250/50 INHA INH SCH (08:46)
--- NOTE | 2016-11-01 14:18 | PN ---
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 Madsen on 10/26. Continue PT. - Weakness and numbness of the right lower extremity with history of intermittent numbness in the left leg since the surgery. - L5-S1 minimal central disk protrusion without spinal canal or bilateral foraminal stenosis. - Atypical chest pain, myocardial infarction ruled out. Nuclear test was negative for ischemia. Dr. Oconnell is following in cardiology consultation. Acute rehab eval pending. Further recommendations based on clinical course. Plan of care discussed with Dr. Rowe. Problems: Subjective 24 Hr Interval Summary Free Text/Dictation Patient's complains of the right foot pain and numbness, denies any chest pain denies shortness of breath. Exam/Review of Systems Vital Signs Vitals Vital Signs Date Time Temp Pulse Resp B/P Pulse Ox O2 Delivery O2 Flow Rate FiO2 11/01/16 07:57 98.1 65 20 106/57 98 10/31/16 20:00 Nasal Cannula 2.0 Intake and Output 10/31/16 10/31/16 11/01/16 15:00 23:00 07:00 Intake Total 650 ml Balance 650 ml Exam Constitutional: alert, oriented Psych: no complaints Head: atraumatic, normocephalic Eyes: nl conjunctiva ENMT: nl external ears & nose Neck: non-tender, supple Respiratory: clear to auscultation, normal air movement Cardiovascular: nl pulses, regular rate and rhythm Gastrointestinal: soft Musculoskeletal: nl extremities to inspection Extremities: normal pulses, other (Right foot status post surgery) 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 intact Results Result Diagram: 11/01/1615 11/01/1615 Results 24 hrs Laboratory Tests Test 11/01/16 05:15 White Blood Count 7.8 Red Blood Count 4.29 Hemoglobin 12.2 Hematocrit 37.5 Mean Corpuscular Volume 87.4 Mean Corpuscular Hemoglobin 28.4 L Mean Corpuscular Hemoglobin Concent 32.5 Red Cell Distribution Width 14.6 H Platelet Count 364 Mean Platelet Volume 9.5 Neutrophils % 58.5 Lymphocytes % 28.2 Monocytes % 8.2 Eosinophils % 4.2 Basophils % 0.5 Nucleated Red Blood Cells % 0.0 Neutrophils # 4.6 Lymphocytes # 2.2 Monocytes # 0.6 Eosinophils # 0.3 Basophils # 0.0 Nucleated Red Blood Cells # 0.0 Sodium Level 137 Potassium Level 3.9 Chloride Level 104 Carbon Dioxide Level 27 Anion Gap 10 Blood Urea Nitrogen 12 Creatinine 0.75 Glucose Level 97 Calcium Level 8.6 Medications Medications Current Medications Nitroglycerin (Nitroglycerin (Sl Tab) 0.4 Mg) 1 tab Q5M PRN SL ANGINA Last administered on 10/28/16 13:18; Admin Dose 1 TAB; Start 10/26/16 at 18:30 Albuterol (Ventolin Hfa) 2 puff Q4H PRN INH sob; Start 10/26/16 at 18:30 Carvedilol (Coreg) 6.25 mg BID PO Last administered on 11/01/16 08:45; Admin Dose 6.25 MG; Start 10/26/16 at 21:00 Aspirin (Ecotrin) 325 mg DAILY PO Last administered on 11/01/16 08:44; Admin Dose 325 MG; Start 10/26/16 at 18:30 Diphenhydramine HCl (Benadryl) 25 mg Q6H PRN IV ITCHING; Start 10/26/16 at 23: 00 Ondansetron HCl (Zofran Inj) 4 mg Q6H PRN IV NAUSEA AND/OR VOMITING Last administered on 10/31/16 17:32; Admin Dose 4 MG; Start 10/26/16 at 23:30 Pregabalin (Lyrica) 50 mg BID PO Last administered on 11/01/16 08:44; Admin Dose 50 MG; Start 10/27/16 at 00:30 Salmeterol Xinafoate/ Fluticasone (Advair 250/50 Diskus) 1 inh DAILY INH Last administered on 11/01/16 08:46; Admin Dose 1 INH; Start 10/27/16 at 09:00 Pantoprazole (Protonix Tab) 40 mg DAILY@06 PO Last administered on 11/01/16 06: 05; Admin Dose 40 MG; Start 10/27/16 at 06:00 Isosorbide Dinitrate (Isordil) 10 mg TID PO Last administered on 10/28/16 13: 12; Admin Dose 10 MG; Start 10/27/16 at 21:00 Ibuprofen (Motrin) 800 mg Q8H PRN NGT pain/headache Last administered on 21:03; Admin Dose 800 MG; Start 10/28/16 at 11:30 Morphine Sulfate (morphine) 2 mg Q2H PRN IV PAIN Last administered on 11/01/16 14:06; Admin Dose 2 MG; Start 10/29/16 at 19:00 EVENS MEZA November 01, 2016 14:18
--- NOTE | 2016-11-01 15:03 | CONS ---
Date/Time of Note Date/Time of Note DATE: 11/01/16 TIME: 15:02 Assessment/Plan Assessment/Plan Additional Assessment/Plan 1. Chest pain, assess for acute coronary syndrome.-negative troponin x 3 but ongoing chest pain/Lexiscan negative for ischemia /NL EF by echo this admit - no intervention planned 2. Shortness of breath, rule out acute coronary syndrome-improved.Likely was secondary to asthma - doubt cardiac 3. History of hypertension- better now, will monitor 4. Status post open reduction/internal fixation of a toe fracture - tolerated procedure well 5. History of asthma. 6. LE [id number] disc protrusion Consultation Date/Type/Reason Admit Date/Time Oct 26, 2016 at 18:24 Initial Consult Date Type of Consultation: Cardiology Referring Provider: MARCELLO CARTER MD 24 HR Interval Summary Free Text/Dictation NO acute change - no CP, off tele now. ROS: No fever, no chills, no nausea, no vomiting, no diarrhea/constipation No recent weight changes No chest pain, no PND, no orthopnea No dizziness, blurred vision No thirst, no heat or cold intolerance Exam/Review of Systems Vital Signs Vitals Vital Signs Date Time Temp Pulse Resp B/P Pulse Ox O2 Delivery O2 Flow Rate FiO2 11/01/16 07:57 98.1 65 20 106/57 98 10/31/16 20:00 Nasal Cannula 2.0 Intake and Output 10/31/16 10/31/16 11/01/16 15:00 23:00 07:00 Intake Total 650 ml Balance 650 ml Exam General: WN/WD/NAD, AOx 2-3 HEENT: Unicetric/atraumatic/EOMI (follow commands) NECK: JVD elevated, no thyromegaly Lymph: no lymphadenopathy HEART: regular with no S3, II/ systolic murmur at apex LUNGS: Coarse sounds ABD: soft, NT, ND, +BS : Intact Neuro: non focal SKIN: chronic changes EXT: trace edema Results Result Diagram: 11/01/1615 11/01/1615 Results 24 hrs Laboratory Tests Test 11/01/16 05:15 White Blood Count 7.8 Red Blood Count 4.29 Hemoglobin 12.2 Hematocrit 37.5 Mean Corpuscular Volume 87.4 Mean Corpuscular Hemoglobin 28.4 L Mean Corpuscular Hemoglobin Concent 32.5 Red Cell Distribution Width 14.6 H Platelet Count 364 Mean Platelet Volume 9.5 Neutrophils % 58.5 Lymphocytes % 28.2 Monocytes % 8.2 Eosinophils % 4.2 Basophils % 0.5 Nucleated Red Blood Cells % 0.0 Neutrophils # 4.6 Lymphocytes # 2.2 Monocytes # 0.6 Eosinophils # 0.3 Basophils # 0.0 Nucleated Red Blood Cells # 0.0 Sodium Level 137 Potassium Level 3.9 Chloride Level 104 Carbon Dioxide Level 27 Anion Gap 10 Blood Urea Nitrogen 12 Creatinine 0.75 Glucose Level 97 Calcium Level 8.6 Medications Medications Current Medications Nitroglycerin (Nitroglycerin (Sl Tab) 0.4 Mg) 1 tab Q5M PRN SL ANGINA Last administered on 10/28/16 13:18; Admin Dose 1 TAB; Start 10/26/16 at 18:30 Albuterol (Ventolin Hfa) 2 puff Q4H PRN INH sob; Start 10/26/16 at 18:30 Carvedilol (Coreg) 6.25 mg BID PO Last administered on 11/01/16 08:45; Admin Dose 6.25 MG; Start 10/26/16 at 21:00 Aspirin (Ecotrin) 325 mg DAILY PO Last administered on 11/01/16 08:44; Admin Dose 325 MG; Start 10/26/16 at 18:30 Diphenhydramine HCl (Benadryl) 25 mg Q6H PRN IV ITCHING; Start 10/26/16 at 23: 00 Ondansetron HCl (Zofran Inj) 4 mg Q6H PRN IV NAUSEA AND/OR VOMITING Last administered on 10/31/16 17:32; Admin Dose 4 MG; Start 10/26/16 at 23:30 Pregabalin (Lyrica) 50 mg BID PO Last administered on 11/01/16 08:44; Admin Dose 50 MG; Start 10/27/16 at 00:30 Salmeterol Xinafoate/ Fluticasone (Advair 250/50 Diskus) 1 inh DAILY INH Last administered on 11/01/16 08:46; Admin Dose 1 INH; Start 10/27/16 at 09:00 Pantoprazole (Protonix Tab) 40 mg DAILY@06 PO Last administered on 11/01/16 06: 05; Admin Dose 40 MG; Start 10/27/16 at 06:00 Isosorbide Dinitrate (Isordil) 10 mg TID PO Last administered on 10/28/16 13: 12; Admin Dose 10 MG; Start 10/27/16 at 21:00 Ibuprofen (Motrin) 800 mg Q8H PRN NGT pain/headache Last administered on 21:03; Admin Dose 800 MG; Start 10/28/16 at 11:30 Morphine Sulfate (morphine) 2 mg Q4 PRN IV SEVERE PAIN LEVEL 7-10; Start at 17:00 KENIA AARON MD November 01, 2016 15:03
[2016-11-01] MEDS ORDERED: traMADol 50 MG TAB PO PRN (17:30)
[2016-11-01] MEDS ORDERED: KETOROLAC 15 MG INJ IV PRN (19:00)
[2016-11-01] MEDS: IBUPROFEN 800 MG TAB NGT PRN (19:28)
[2016-11-01 20:08] VITALS: BP 130/65; RESP 18
[2016-11-02] MEDS: PANTOPRAZOLE (EC) 40 MG TAB PO SCH (05:31)
[2016-11-02] MEDS: morphine 2 MG INJ IV PRN ×4 (05:32→19:17)
[2016-11-02 06:16] LABS: ADD SCAN DIFF NO
[2016-11-02 06:21] LABS: BASOPHIL # 0.1 10^3/ul (0.0-0.1); BASOPHILS % 0.7 % (0.0-2.0); EOSINOPHILS # 0.3 10^3/ul (0.0-0.5); EOSINOPHILS % 4.2 % (0.0-7.0); HEMATOCRIT 37.5 % (37.0-47.0); HEMOGLOBIN 12.1 g/dl (12.0-16.0); LYMPHOCYTES # 2.3 10^3/ul (0.8-2.9); LYMPHOCYTES % 32.4 % (15.0-51.0); MEAN CORPUSCULAR HEMOGLOBIN 28.3 pg (29.0-33.0); MEAN CORPUSCULAR HGB CONC 32.3 g/dl (32.0-37.0); MEAN CORPUSCULAR VOLUME 87.6 fl (82.0-101.0); MEAN PLATELET VOLUME 9.1 fl (7.4-10.4); MONOCYTE # 0.7 10^3/ul (0.3-0.9); MONOCYTES % 9.8 % (0.0-11.0); NEUTROPHIL # 3.7 10^3/ul (1.6-7.5); NEUTROPHILS % 52.3 % (39.0-77.0); PLATELET COUNT 348 10^3/UL (140-415); RED BLOOD COUNT 4.28 10^6/ul (4.20-5.40); RED CELL DISTRIBUTION WIDTH 14.3 % (11.5-14.5); WHITE BLOOD COUNT 7.1 10^3/ul (4.8-10.8)
[2016-11-02 07:53] LABS: CALCIUM 8.4 mg/dl (8.4-10.2); CREATININE 0.65 mg/dl (0.44-1.00); POTASSIUM 4.2 mmol/L (3.5-5.1)
[2016-11-02 07:59] VITALS: BP 120/59; RESP 16
[2016-11-02] MEDS: IBUPROFEN 800 MG TAB NGT PRN ×2 (08:50→17:13)
[2016-11-02] MEDS: ISOSORBIDE DINITRATE 10 MG TAB PO SCH ×3 (09:00→20:27)
[2016-11-02] MEDS: PREGABALIN 25 MG CAP PO SCH ×2 (09:02→20:25)
[2016-11-02] MEDS: ASPIRIN (EC) 325 MG TAB PO SCH (09:02)
[2016-11-02] MEDS: SALMETEROL/FLUTICASONE 250/50 INHA INH SCH (09:02)
[2016-11-02] MEDS ORDERED: MORP15TA92 PO (15:06)
--- NOTE | 2016-11-02 17:29 | CONS ---
Date/Time of Note Date/Time of Note DATE: 11/02/16 TIME: 17:27 Assessment/Plan Assessment/Plan Chief Complaint/Hosp Course IMPRESSION 1. Chest pain, assess for acute coronary syndrome.-negative troponin x 3 but ongoing chest pain/Lexiscan negative for ischemia /NL EF by echo this admit 2. Shortness of breath, rule out acute coronary syndrome-improved.Likely was secondary to asthma 3. History of hypertension. 4. Status post open reduction/internal fixation of a toe fracture today. 5. History of asthma. 6. LE [id number] disc protrusion Recc: -Tele -continue coreg/asa -Continue to oral nitrates and follow sx as patient will comply -Pain control for foot -PT eval/acute rehab eval -Ongoing podiatric eval and treatment Problems: Consultation Date/Type/Reason Admit Date/Time Oct 26, 2016 at 18:24 Initial Consult Date 10/26/2016 Type of Consultation: Cardiology Reason for Consultation chest pain Referring Provider: MARCELLO CARTER MD Exam/Review of Systems Vital Signs Vitals Vital Signs Date Time Temp Pulse Resp B/P Pulse Ox O2 Delivery O2 Flow Rate FiO2 11/02/16 07:59 98.2 60 16 120/59 95 10/31/16 20:00 Nasal Cannula 2.0 Intake and Output 11/01/16 11/01/16 11/02/16 15:00 23:00 07:00 Intake Total 480 ml 1260 ml 480 ml Output Total 0 ml Balance 480 ml 1260 ml 480 ml Exam Review of Systems: CONSTITUTIONAL: No fevers, chills. PULMONARY: No sob CARDIOVASCULAR: No chest pain/palpitations GASTROINTESTINAL: No nausea/vomiting. GENITOURINARY: No hematuria/dysuria. MUSCULOSKELETAL: pain in foot/numbness of leg PSYCHIATRIC: The patient denies depression. NEUROLOGIC: No weakness Constitutional: alert Psych: no complaints Head: normocephalic ENMT: mucosa pink and moist Neck: jvd (9 cm water), supple Respiratory: diminished breath sounds (at bases/B) Cardiovascular: regular rate and rhythm Gastrointestinal: non-tender, soft Musculoskeletal: muscle tone (normal) Extremities: edema, other (foot covered by dressing/cast) Neurological: other (weakness of LE) Results Result Diagram: 11/02/16 0600 11/02/16 0600 Results 24 hrs Laboratory Tests Test 11/02/16 06:00 White Blood Count 7.1 Red Blood Count 4.28 Hemoglobin 12.1 Hematocrit 37.5 Mean Corpuscular Volume 87.6 Mean Corpuscular Hemoglobin 28.3 L Mean Corpuscular Hemoglobin Concent 32.3 Red Cell Distribution Width 14.3 Platelet Count 348 Mean Platelet Volume 9.1 Neutrophils % 52.3 Lymphocytes % 32.4 Monocytes % 9.8 Eosinophils % 4.2 Basophils % 0.7 Nucleated Red Blood Cells % 0.0 Neutrophils # 3.7 Lymphocytes # 2.3 Monocytes # 0.7 Eosinophils # 0.3 Basophils # 0.1 Nucleated Red Blood Cells # 0.0 Sodium Level 136 Potassium Level 4.2 Chloride Level 104 Carbon Dioxide Level 25 Anion Gap 11 Blood Urea Nitrogen 12 Creatinine 0.65 Glucose Level 97 Calcium Level 8.4 Medications Medications Current Medications Nitroglycerin (Nitroglycerin (Sl Tab) 0.4 Mg) 1 tab Q5M PRN SL ANGINA Last administered on 10/28/16 13:18; Admin Dose 1 TAB; Start 10/26/16 at 18:30 Albuterol (Ventolin Hfa) 2 puff Q4H PRN INH sob; Start 10/26/16 at 18:30 Carvedilol (Coreg) 6.25 mg BID PO Last administered on 11/02/16 09:02; Admin Dose 6.25 MG; Start 10/26/16 at 21:00 Aspirin (Ecotrin) 325 mg DAILY PO Last administered on 11/02/16 09:02; Admin Dose 325 MG; Start 10/26/16 at 18:30 Diphenhydramine HCl (Benadryl) 25 mg Q6H PRN IV ITCHING; Start 10/26/16 at 23: 00 Ondansetron HCl (Zofran Inj) 4 mg Q6H PRN IV NAUSEA AND/OR VOMITING Last administered on 10/31/16 17:32; Admin Dose 4 MG; Start 10/26/16 at 23:30 Pregabalin (Lyrica) 50 mg BID PO Last administered on 11/02/16 09:02; Admin Dose 50 MG; Start 10/27/16 at 00:30 Salmeterol Xinafoate/ Fluticasone (Advair 250/50 Diskus) 1 inh DAILY INH Last administered on 11/02/16 09:02; Admin Dose 1 INH; Start 10/27/16 at 09:00 Pantoprazole (Protonix Tab) 40 mg DAILY@06 PO Last administered on 11/02/16 05: 31; Admin Dose 40 MG; Start 10/27/16 at 06:00 Isosorbide Dinitrate (Isordil) 10 mg TID PO Last administered on 10/28/16 13: 12; Admin Dose 10 MG; Start 10/27/16 at 21:00 Ibuprofen (Motrin) 800 mg Q8H PRN NGT pain/headache Last administered on 17:13; Admin Dose 800 MG; Start 10/28/16 at 11:30 Morphine Sulfate (morphine) 2 mg Q4 PRN IV SEVERE PAIN LEVEL 7-10 Last administered on 11/02/16 15:44; Admin Dose 2 MG; Start 11/01/16 at 17:00 Ketorolac Tromethamine (Toradol) 15 mg Q6H PRN IV PAIN; Start 11/01/16 at 19:00 ; Stop 11/04/16 at 18:59 GEMMA JOHNSON November 02, 2016 17:29
[2016-11-02 19:44] VITALS: BP 130/66; RESP 16
== END 2016-11-02 20:50 | disposition home health service (06) | DRG 982 ==
LOC: SDS 14:10 → TEL 18:24 → MS2 10-31 18:41
PROVIDERS: ADMIT Podiatrist Foot & Ankle Surgery; ATTEND Podiatrist Foot & Ankle Surgery
PROC: 0QSN04Z Reposition Right Metatarsal with Internal Fixation Device, Open Approach (ICD-10-PCS; 2016-10-26)
PROC: C22G1ZZ Tomographic (Tomo) Nuclear Medicine Imaging of Myocardium using Technetium 99m (Tc-99m) (ICD-10-PCS; principal; 2016-10-28)
PROC: 4A02XM4 Measurement of Cardiac Total Activity, External Approach (ICD-10-PCS; 2016-10-28)
PROC: 3E033HZ Introduction of Radioactive Substance into Peripheral Vein, Percutaneous Approach (ICD-10-PCS; 2016-10-28)
DX: R07.89 Other chest pain (principal); Z68.41 Body mass index [BMI] 40.0-44.9, adult; I10 Essential (primary) hypertension; E66.01 Morbid (severe) obesity due to excess calories; J45.909 Unspecified asthma, uncomplicated; Z88.6 Allergy status to analgesic agent; S92.351A Displaced fracture of fifth metatarsal bone, right foot, initial encounter for closed fracture; X50.1XXA Overexertion from prolonged static or awkward postures, initial encounter; E11.9 Type 2 diabetes mellitus without complications; M51.27 Other intervertebral disc displacement, lumbosacral region; I25.119 Atherosclerotic heart disease of native coronary artery with unspecified angina pectoris; E78.5 Hyperlipidemia, unspecified; K21.9 Gastro-esophageal reflux disease without esophagitis
CPT/HCPCS: 72148; 73630; 78452; 80048; 80053; 80061; 84484; 84703; 85025; 93005; 93017; 93306; 94664; 97116; 97162; 97530; A9500; A9505; J0690; J1170; J1200; J1885; J2250; J2270; J2405; J2765; J2785; J3480; J7120; L3260-LT

== ENCOUNTER 2017-07-18 21:39 | Observation (INO) | END 2017-07-19 20:45 | disposition home or self-care (01) ==

== ENCOUNTER → 2019-02-01 | Outpatient (CLI) | payer OTHER ==
[~2019-02-01] MED LIST changes: -AMLO5TAB4 PO; +CARV6.2579 PO; -CEFAZOLIN 1 GM INJ ONE; +DIPHENHYDRAMINE 50 MG INJ IV ONE; +DIPHENHYDRAMINE 50 MG INJ ONE; -IBUP-1542 PO; +IOHEXOL 100 ML ONE; +LABETALOL HCL 20MG INJ IV ONE; +LABETALOL HCL 20MG INJ ONE; +LYR75 PO; +METOPROLOL (XL) 100 MG TAB PO ONE; +METOPROLOL 100 MG TAB ONE; +METOPROLOL 5 MG INJ ONE; +MOME13HF2 INHALATION; +MORP15TA92 PO; +NITROGLYCERIN AEROSOL (4.9 GM) ONE; +NITROGLYCERIN AEROSOL (4.9 GM) SL ONE; -OMEP40CA6 PO; -OXYC-281 PO; -PROPOFOL 200 MG INJ ONE; +SOD CHLORIDE 0.9% 100 ML ONE; -TRAM50TA2 PO; +VALS80TA2 PO
== END | disposition home or self-care (01) ==
LOC: C/S 10:07
PROVIDERS: ATTEND Internal Medicine
DX: R07.9 Chest pain, unspecified (principal); R06.02 Shortness of breath
CPT/HCPCS: 75571; 75574; J1200; Q9967; Z7610